=== PATIENT | male | born 1980 | race Caucasian/White ===

== ENCOUNTER 2020-07-08 13:37 | Inpatient (IN) ==
[2020-07-08] MEDS ORDERED: 0.9 % Sodium Chloride 1,000 ML IVC ONE ×2 (13:52→15:50)
[2020-07-08] MEDS ORDERED: Isovue-370 500 ML BOTTLE IVP ONE (13:52)
[2020-07-08] MEDS ORDERED: Prochlorperazine 10 MG/2 ML VIAL IVP ONE (13:52)
[2020-07-08 14:39] LABS: Basophils # 0.1 K/mcL (0.0-0.2); Basophils % 0.4 %; Eosinophils # 0.2 K/mcL (0.0-0.6); Hematocrit 44.3 % (37.5-50.1); Hemoglobin 14.6 g/dL (12.9-16.9); Immature Granulocytes % 0.4 % (0-4); Lymphocytes # 0.9 K/mcL (0.6-4.6); Lymphocytes % 6.2 %; Mean Corpuscular Hemoglobin 27.3 pg (28.0-33.3); Mean Platelet Volume 9.9 fL (9.4-12.4); Monocytes # 0.7 K/mcL (0.0-1.3); Monocytes % 4.7 %; Neutrophils # 12.7 K/mcL (1.6-8.9); Platelet Count 285 K/mcL (140-400); Red Blood Count 5.34 M/mcL (4.19-5.50); Red Cell Distribution Width 14.7 % (11.5-14.5); Segmented Neutrophils % 87.3 %; White Blood Count 14.6 K/mcL (4.3-11.1)
[2020-07-08 15:11] LABS: Alanine Aminotransferase 13 Units/L (7-52); Albumin 3.6 g/dL (3.5-5.7); Albumin/Globulin Ratio 0.8 (1.1-2.2); Alkaline Phosphatase 57 Units/L (34-104); Aspartate Amino Transferase 15 Units/L (13-39); BUN/Creatinine Ratio 14 (6-26); Bilirubin,Direct 0.2 mg/dL (0.0-0.2); Bilirubin,Indirect 0.6 mg/dL (0.0-1.0); Bilirubin,Total 0.8 mg/dL (0.3-1.0); Blood Urea Nitrogen 13 mg/dL (6-20); Carbon Dioxide 21 mEq/L (23-29); Chloride 102 mEq/L (98-107); Globulin 4.5 g/dL (2.4-3.5); Glucose 104 mg/dL (70-105); Lipase 225 Units/L (11-82); Osmolality,Calculated 280 (280-300); Potassium 3.6 mEq/L (3.5-5.1); Sodium 135 mEq/L (136-145); Total Protein 8.1 g/dL (6.4-8.9); Triglycerides 88 mg/dL (< 150); eGFR For African Americans > 60 (> 60); eGFR For Non-African Americans > 60 (> 60)
[2020-07-08 16:13] LABS: Ethanol < 10 mg/dL (Less than 10)
[2020-07-08] MEDS ORDERED: Metoclopramide 10 MG/2 ML VIAL IVP ONE (16:42)
[2020-07-08] MEDS ORDERED: Naloxone 0.4 MG/ML INJ IVP PRN (16:49)
[2020-07-08] MEDS: 0.9 % Sodium Chloride 1,000 ML IVC SCH (18:16)
[2020-07-08 18:45] LABS: Bilirubin,Urine Negative (Negative); Blood,Urine Small (Negative); Clarity,Urine Clear (Clear); Color,Urine Light-Yellow (Yellow); Glucose,Urine (UA) Normal (Normal); Ketones,Urine Trace mg/dL (Negative); Leukocyte Esterase,Urine Negative (Negative); Nitrite,Urine Negative (Negative); Protein,Urine Negative (Neg-Trace); Specific Gravity,Urine > 1.030 (1.010-1.025); Squamous Epithelial Cell,Urine Few per hpf (None-Few); WBC,Urine 0-3 per hpf (0-3)
[2020-07-08] MEDS: *HR* Heparin 5,000 UNIT/ML VIAL SQ SCH (21:23)
[2020-07-08] MEDS: levoFLOXacin 750 MG/150 ML 750 MG/150 ML BAG IVPB SCH (23:34)
[2020-07-09] MEDS: 0.9 % Sodium Chloride 1,000 ML IVC SCH ×3 (02:24→22:21)
[2020-07-09] MEDS: *HR* Heparin 5,000 UNIT/ML VIAL SQ SCH ×3 (06:13→21:05)
[2020-07-09 06:50] LABS: Hematocrit 40.4 % (37.5-50.1); Hemoglobin 13.1 g/dL (12.9-16.9); Mean Corpuscular HGB Conc 32.4 g/dL (31.6-35.5); Mean Corpuscular Hemoglobin 27.5 pg (28.0-33.3); Mean Corpuscular Volume 84.7 fL (83.0-100.0); Mean Platelet Volume 9.6 fL (9.4-12.4); Platelet Count 217 K/mcL (140-400); Red Blood Count 4.77 M/mcL (4.19-5.50); Red Cell Distribution Width 14.6 % (11.5-14.5); White Blood Count 11.7 K/mcL (4.3-11.1)
[2020-07-09] MEDS: levoFLOXacin 750 MG/150 ML 750 MG/150 ML BAG IVPB SCH (07:38)
[2020-07-09 08:55] LABS: Estimated Average Glucose 97 mg/dl
[2020-07-09 09:48] LABS: BUN/Creatinine Ratio 11 (6-26); Blood Urea Nitrogen 11 mg/dL (6-20); Calcium 8.9 mg/dL (8.6-10.3); Carbon Dioxide 20 mEq/L (23-29); Chloride 104 mEq/L (98-107); Chol/HDL Ratio 5.3 (0-4.9); Cholesterol 122 mg/dL (< 200); Glucose 95 mg/dL (70-105); HDL Cholesterol 23 mg/dL (40-59); LDL Cholesterol,Calculated 76 mg/dL (< 100); Osmolality,Calculated 279 (280-300); Potassium 3.8 mEq/L (3.5-5.1); Sodium 135 mEq/L (136-145); Triglycerides 113 mg/dL (< 150); eGFR For African Americans > 60 (> 60); eGFR For Non-African Americans > 60 (> 60)
[2020-07-09] MEDS: *HR* HYDROmorphone PF 0.5 MG/0.5 ML SYRINGE IVP PRN (21:05)
[2020-07-09] MEDS: Acetaminophen 325 MG TABLET PO PRN (23:54)
[2020-07-10 05:04] LABS: Hemoglobin 12.6 g/dL (12.9-16.9); Mean Corpuscular HGB Conc 31.5 g/dL (31.6-35.5); Mean Corpuscular Hemoglobin 27.2 pg (28.0-33.3); Mean Corpuscular Volume 86.4 fL (83.0-100.0); Platelet Count 174 K/mcL (140-400); Red Blood Count 4.63 M/mcL (4.19-5.50); Red Cell Distribution Width 14.9 % (11.5-14.5); White Blood Count 8.7 K/mcL (4.3-11.1)
[2020-07-10] MEDS: *HR* Heparin 5,000 UNIT/ML VIAL SQ SCH ×3 (05:14→21:16)
[2020-07-10 05:23] LABS: BUN/Creatinine Ratio 10 (6-26); Blood Urea Nitrogen 10 mg/dL (6-20); Calcium 8.6 mg/dL (8.6-10.3); Carbon Dioxide 20 mEq/L (23-29); Chloride 103 mEq/L (98-107); Glucose 87 mg/dL (70-105); Osmolality,Calculated 274 (280-300); Potassium 3.6 mEq/L (3.5-5.1); Sodium 133 mEq/L (136-145); eGFR For African Americans > 60 (> 60); eGFR For Non-African Americans > 60 (> 60)
[2020-07-10] MEDS: 0.9 % Sodium Chloride 1,000 ML IVC SCH ×2 (06:26→19:25)
[2020-07-10] MEDS: *HR* HYDROmorphone PF 0.5 MG/0.5 ML SYRINGE IVP PRN ×2 (07:33→19:48)
[2020-07-10] MEDS: Ringers Solution, Lactated 1,000 ML IVC SCH ×2 (14:22→21:16)
[2020-07-10] MEDS: Acetaminophen 325 MG TABLET PO PRN (19:48)
[2020-07-11] MEDS ORDERED: *HR* HYDROcodone/Acet 5/325 mg TABLET PO ONE (00:33)
[2020-07-11] MEDS: *HR* HYDROmorphone PF 0.5 MG/0.5 ML SYRINGE IVP PRN ×2 (03:03→09:06)
[2020-07-11] MEDS: *HR* Heparin 5,000 UNIT/ML VIAL SQ SCH ×3 (05:23→21:16)
[2020-07-11 05:57] LABS: Basophils # 0.1 K/mcL (0.0-0.2); Basophils % 0.4 %; Eosinophils # 0.1 K/mcL (0.0-0.6); Eosinophils % 1.2 %; Hematocrit 38.5 % (37.5-50.1); Hemoglobin 12.4 g/dL (12.9-16.9); Immature Granulocytes % 0.6 % (0-4); Lymphocytes # 0.9 K/mcL (0.6-4.6); Mean Corpuscular HGB Conc 32.2 g/dL (31.6-35.5); Mean Corpuscular Hemoglobin 27.1 pg (28.0-33.3); Mean Corpuscular Volume 84.2 fL (83.0-100.0); Monocytes # 0.9 K/mcL (0.0-1.3); Monocytes % 7.7 %; Neutrophils # 9.2 K/mcL (1.6-8.9); Platelet Count 182 K/mcL (140-400); Red Blood Count 4.57 M/mcL (4.19-5.50); Red Cell Distribution Width 14.8 % (11.5-14.5); Segmented Neutrophils % 82.1 %; White Blood Count 11.3 K/mcL (4.3-11.1)
[2020-07-11 06:13] LABS: BUN/Creatinine Ratio 11 (6-26); Blood Urea Nitrogen 10 mg/dL (6-20); Calcium 8.8 mg/dL (8.6-10.3); Carbon Dioxide 22 mEq/L (23-29); Chloride 103 mEq/L (98-107); Glucose 97 mg/dL (70-105); Osmolality,Calculated 277 (280-300); Potassium 3.4 mEq/L (3.5-5.1); Sodium 134 mEq/L (136-145); eGFR For African Americans > 60 (> 60); eGFR For Non-African Americans > 60 (> 60)
[2020-07-11 08:48] LABS: Lipase 14 Units/L (11-82)
[2020-07-11] MEDS: *HR* HYDROcodone/Acet 5/325 mg TABLET PO PRN ×2 (12:00→18:04)
[2020-07-11] MEDS: Acetaminophen 325 MG TABLET PO PRN (16:04)
[2020-07-11] MEDS: Ringers Solution, Lactated 1,000 ML IVC SCH (19:41)
[2020-07-12] MEDS: *HR* HYDROcodone/Acet 5/325 mg TABLET PO PRN ×4 (00:42→21:41)
[2020-07-12 03:15] LABS: APTT (LE Anticoag) >150 sec (32-48); Diluted Russell Viper Venom >150 sec (33-44); LE Coag APTT Mixing >150 sec (32-48); LE Dil. Russell Viper Mix 1:1 >150 sec (33-44); PT (LE-Anticoag) 17.8 sec (12.0-15.5); Thrombin Time 18.6 sec (14.7-19.5)
[2020-07-12] MEDS: *HR* Heparin 5,000 UNIT/ML VIAL SQ SCH ×3 (05:04→21:40)
[2020-07-12] MEDS: Simethicone 80 MG TAB.CHEW PO PRN ×2 (06:10→19:58)
[2020-07-12] MEDS ORDERED: Ondansetron 4 MG/2 ML VIAL IVP PRN (09:41)
[2020-07-12] MEDS: Ringers Solution, Lactated 1,000 ML IVC SCH ×3 (10:15→23:48)
[2020-07-12 10:46] LABS: Basophils % 0.3 %; Eosinophils # 0.1 K/mcL (0.0-0.6); Eosinophils % 0.7 %; Hematocrit 40.3 % (37.5-50.1); Hemoglobin 13.6 g/dL (12.9-16.9); Immature Granulocytes % 0.4 % (0-4); Lymphocytes # 0.7 K/mcL (0.6-4.6); Mean Corpuscular HGB Conc 33.7 g/dL (31.6-35.5); Mean Corpuscular Hemoglobin 27.1 pg (28.0-33.3); Mean Corpuscular Volume 80.3 fL (83.0-100.0); Mean Platelet Volume 9.7 fL (9.4-12.4); Monocytes # 0.9 K/mcL (0.0-1.3); Monocytes % 6.5 %; Neutrophils # 11.7 K/mcL (1.6-8.9); Platelet Count 157 K/mcL (140-400); Red Blood Count 5.02 M/mcL (4.19-5.50); Red Cell Distribution Width 14.7 % (11.5-14.5); Segmented Neutrophils % 87.1 %; White Blood Count 13.5 K/mcL (4.3-11.1)
[2020-07-12 11:04] LABS: Alanine Aminotransferase 17 Units/L (7-52); Albumin 3.4 g/dL (3.5-5.7); Albumin/Globulin Ratio 0.7 (1.1-2.2); Alkaline Phosphatase 62 Units/L (34-104); Aspartate Amino Transferase 16 Units/L (13-39); BUN/Creatinine Ratio 11 (6-26); Bilirubin,Direct 0.4 mg/dL (0.0-0.2); Bilirubin,Indirect 0.6 mg/dL (0.0-1.0); Blood Urea Nitrogen 11 mg/dL (6-20); Calcium 9.1 mg/dL (8.6-10.3); Carbon Dioxide 24 mEq/L (23-29); Chloride 99 mEq/L (98-107); Globulin 4.7 g/dL (2.4-3.5); Glucose 110 mg/dL (70-105); Osmolality,Calculated 276 (280-300); Potassium 3.4 mEq/L (3.5-5.1); Sodium 133 mEq/L (136-145); Total Protein 8.1 g/dL (6.4-8.9); eGFR For African Americans > 60 (> 60); eGFR For Non-African Americans > 60 (> 60)
[2020-07-12] MEDS ORDERED: Isovue-370 500 ML BOTTLE IVP ONE ×2 (13:53→15:12)
[2020-07-12 14:55] LABS: Amphetamine Screen,Urine Negative ng/mL (Cutoff=1000); Barbiturate Screen,Urine Negative ng/mL (Cutoff=200); Benzodiazepines Screen,Urine Negative ng/mL (Cutoff=200); Cannabinoid Screen,Urine Negative ng/mL (Cutoff = 50); Cocaine Screen,Urine Negative ng/mL (Cutoff= 300); Opiate Screen,Urine Positive ng/mL (Cutoff=300); Phencyclidine Screen,Urine Negative ng/mL (Cutoff=25)
[2020-07-12] MEDS ORDERED: Perflutren Lipid Microsphere 1.3 ML in 0.9 % Sodium Chloride 8.7 ML IVP PRN (15:13)
[2020-07-12] MEDS ORDERED: Melatonin 3 MG TABLET PO PRN (23:59)
[2020-07-13] MEDS: Ringers Solution, Lactated 1,000 ML IVC SCH (05:04)
[2020-07-13] MEDS: *HR* Heparin 5,000 UNIT/ML VIAL SQ SCH ×2 (05:05→13:59)
[2020-07-13] MEDS: Simethicone 80 MG TAB.CHEW PO PRN (08:42)
[2020-07-13] MEDS: *HR* HYDROcodone/Acet 5/325 mg TABLET PO PRN (10:59)
[2020-07-13 12:12] VITALS: BP 144/76
== END 2020-07-13 14:24 | disposition home or self-care (01) | DRG 439 ==
LOC: EMEROOARM 13:37 → 3ANU 13:37 → SUATTDRO 16:08 → 3ANU 17:03
PROVIDERS: ADMIT Internal Medicine; ATTEND Internal Medicine

== ENCOUNTER 2020-07-23 11:04 | Inpatient (IN) ==
[2020-07-23 12:15] LABS: Basophils # 0.1 K/mcL (0.0-0.2); Basophils % 0.4 %; Eosinophils # 0.2 K/mcL (0.0-0.6); Hematocrit 37.9 % (37.5-50.1); Hemoglobin 12.4 g/dL (12.9-16.9); Immature Granulocytes % 1.2 % (0-4); Lymphocytes # 0.9 K/mcL (0.6-4.6); Lymphocytes % 5.7 %; Mean Corpuscular HGB Conc 32.7 g/dL (31.6-35.5); Mean Corpuscular Hemoglobin 26.8 pg (28.0-33.3); Monocytes # 0.7 K/mcL (0.0-1.3); Monocytes % 4.6 %; Neutrophils # 13.9 K/mcL (1.6-8.9); Platelet Count 300 K/mcL (140-400); Red Blood Count 4.62 M/mcL (4.19-5.50); Red Cell Distribution Width 14.8 % (11.5-14.5); Segmented Neutrophils % 87.1 %
[2020-07-23] MEDS ORDERED: Ondansetron 4 MG/2 ML VIAL IVP ONE (12:23)
[2020-07-23] MEDS ORDERED: Ringers Solution, Lactated 1,000 ML IVC ONE (12:23)
[2020-07-23 12:29] LABS: Bilirubin,Urine Negative (Negative); Blood,Urine Trace (Negative); Clarity,Urine Clear (Clear); Color,Urine Light-Yellow (Yellow); Glucose,Urine (UA) Normal (Normal); Ketones,Urine Negative (Negative); Leukocyte Esterase,Urine Negative (Negative); Mucus,Urine Few per lpf (None-Few); Nitrite,Urine Negative (Negative); Protein,Urine Trace mg/dL (Neg-Trace); Specific Gravity,Urine 1.013 (1.010-1.025); Urobilinogen,Urine Normal (Normal); WBC,Urine 0-3 per hpf (0-3)
[2020-07-23 12:41] LABS: Alanine Aminotransferase 24 Units/L (7-52); Albumin/Globulin Ratio 0.7 (1.1-2.2); Alkaline Phosphatase 62 Units/L (34-104); Amylase 51 Units/L (29-103); Aspartate Amino Transferase 16 Units/L (13-39); BUN/Creatinine Ratio 10 (6-26); Bilirubin,Direct 0.2 mg/dL (0.0-0.2); Bilirubin,Indirect 0.4 mg/dL (0.0-1.0); Bilirubin,Total 0.6 mg/dL (0.3-1.0); Blood Urea Nitrogen 10 mg/dL (6-20); Calcium 6.5 mg/dL (8.6-10.3); Carbon Dioxide 21 mEq/L (23-29); Chloride 82 mEq/L (98-107); Globulin 4.4 g/dL (2.4-3.5); Glucose 102 mg/dL (70-105); Lipase 46 Units/L (11-82); Osmolality,Calculated 317 (280-300); Potassium 3.6 mEq/L (3.5-5.1); Sodium 154 mEq/L (136-145); Total Protein 7.4 g/dL (6.4-8.9); eGFR For African Americans > 60 (> 60); eGFR For Non-African Americans > 60 (> 60)
[2020-07-23 12:46] LABS: Troponin I 0.07 ng/mL (< 0.04)
[2020-07-23] MEDS ORDERED: *HR* HYDROmorphone (PF) 1 MG/ML SYRINGE IVP ONE (12:53)
[2020-07-23] MEDS ORDERED: Isovue-370 500 ML BOTTLE IVP ONE (12:53)
[2020-07-23] MEDS ORDERED: Aspirin 81 MG TAB.CHEW PO ONE (13:00)
[2020-07-23] MEDS ORDERED: Aspirin 81 MG TAB.CHEW ONE (13:03)
[2020-07-23] MEDS ORDERED: Naloxone 0.4 MG/ML INJ IVP PRN (15:04)
[2020-07-23] MEDS ORDERED: Calcium Gluconate 1gm/50mL 1 GM/50 ML BAG IVPB ONE (16:53)
[2020-07-23] MEDS: levoFLOXacin 500 MG/100 ML 500 MG/100 ML BAG IVPB SCH (18:40)
[2020-07-23] MEDS: *HR* Heparin 5,000 UNIT/ML VIAL SQ SCH (19:31)
[2020-07-23] MEDS: Ringers Solution, Lactated 1,000 ML IVC SCH ×2 (19:56→22:52)
[2020-07-24] MEDS: Ringers Solution, Lactated 1,000 ML IVC SCH ×4 (03:34→17:42)
[2020-07-24 05:32] LABS: Basophils # 0.1 K/mcL (0.0-0.2); Basophils % 0.3 %; Eosinophils # 0.2 K/mcL (0.0-0.6); Eosinophils % 1.2 %; Hematocrit 38.8 % (37.5-50.1); Hemoglobin 12.5 g/dL (12.9-16.9); Immature Granulocytes % 0.9 % (0-4); Lymphocytes # 0.9 K/mcL (0.6-4.6); Lymphocytes % 5.1 %; Mean Corpuscular HGB Conc 32.2 g/dL (31.6-35.5); Mean Corpuscular Hemoglobin 27.3 pg (28.0-33.3); Mean Corpuscular Volume 84.7 fL (83.0-100.0); Mean Platelet Volume 9.1 fL (9.4-12.4); Monocytes # 0.9 K/mcL (0.0-1.3); Monocytes % 5.3 %; Neutrophils # 15.1 K/mcL (1.6-8.9); Platelet Count 255 K/mcL (140-400); Red Blood Count 4.58 M/mcL (4.19-5.50); Red Cell Distribution Width 15.1 % (11.5-14.5); Segmented Neutrophils % 87.2 %; White Blood Count 17.3 K/mcL (4.3-11.1)
[2020-07-24] MEDS: *HR* Heparin 5,000 UNIT/ML VIAL SQ SCH ×4 (05:43→21:36)
[2020-07-24 06:00] LABS: BUN/Creatinine Ratio 10 (6-26); Blood Urea Nitrogen 12 mg/dL (6-20); Calcium 9.1 mg/dL (8.6-10.3); Carbon Dioxide 25 mEq/L (23-29); Chloride 98 mEq/L (98-107); Glucose 93 mg/dL (70-105); Osmolality,Calculated 271 (280-300); Potassium 4.1 mEq/L (3.5-5.1); Sodium 131 mEq/L (136-145); eGFR For African Americans > 60 (> 60); eGFR For Non-African Americans > 60 (> 60)
[2020-07-24 07:43] LABS: BUN/Creatinine Ratio 10 (6-26); Blood Urea Nitrogen 12 mg/dL (6-20); Calcium 8.8 mg/dL (8.6-10.3); Carbon Dioxide 26 mEq/L (23-29); Chloride 99 mEq/L (98-107); Glucose 106 mg/dL (70-105); Osmolality,Calculated 274 (280-300); Sodium 132 mEq/L (136-145); eGFR For African Americans > 60 (> 60); eGFR For Non-African Americans > 60 (> 60)
[2020-07-24 07:58] LABS: Troponin I < 0.03 ng/mL (< 0.04)
[2020-07-24] MEDS: Acetaminophen 325 MG TABLET PO PRN ×2 (12:59→23:36)
[2020-07-24] MEDS: MetroNIDAZOLE 500 MG/100 ML 500 MG/100 ML BAG IVPB SCH ×2 (15:15→23:36)
[2020-07-24 16:21] LABS: Alanine Aminotransferase 16 Units/L (7-52); Albumin/Globulin Ratio 0.6 (1.1-2.2); Alkaline Phosphatase 66 Units/L (34-104); Aspartate Amino Transferase 15 Units/L (13-39); BUN/Creatinine Ratio 12 (6-26); Bilirubin,Total 1.4 mg/dL (0.3-1.0); Blood Urea Nitrogen 14 mg/dL (6-20); Calcium 8.8 mg/dL (8.6-10.3); Carbon Dioxide 27 mEq/L (23-29); Chloride 97 mEq/L (98-107); Globulin 4.7 g/dL (2.4-3.5); Glucose 91 mg/dL (70-105); Osmolality,Calculated 272 (280-300); Potassium 3.9 mEq/L (3.5-5.1); Sodium 131 mEq/L (136-145); Total Protein 7.7 g/dL (6.4-8.9); eGFR For African Americans > 60 (> 60); eGFR For Non-African Americans > 60 (> 60)
[2020-07-24] MEDS: levoFLOXacin 500 MG/100 ML 500 MG/100 ML BAG IVPB SCH (16:30)
[2020-07-24] MEDS: 0.9 % Sodium Chloride 1,000 ML IVC SCH ×2 (18:29→21:25)
[2020-07-25] MEDS: 0.9 % Sodium Chloride 1,000 ML IVC SCH ×4 (02:03→20:22)
[2020-07-25] MEDS: *HR* Heparin 5,000 UNIT/ML VIAL SQ SCH ×3 (04:59→20:17)
[2020-07-25 06:03] LABS: Basophils % 0.2 %; Eosinophils # 0.1 K/mcL (0.0-0.6); Eosinophils % 0.8 %; Hematocrit 37.1 % (37.5-50.1); Hemoglobin 11.7 g/dL (12.9-16.9); Immature Granulocytes % 0.9 % (0-4); Mean Corpuscular HGB Conc 31.5 g/dL (31.6-35.5); Mean Corpuscular Hemoglobin 26.5 pg (28.0-33.3); Mean Corpuscular Volume 83.9 fL (83.0-100.0); Mean Platelet Volume 9.3 fL (9.4-12.4); Monocytes % 5.9 %; Neutrophils # 13.9 K/mcL (1.6-8.9); Platelet Count 214 K/mcL (140-400); Red Blood Count 4.42 M/mcL (4.19-5.50); Red Cell Distribution Width 15.3 % (11.5-14.5); Segmented Neutrophils % 86.2 %; White Blood Count 16.2 K/mcL (4.3-11.1)
[2020-07-25 06:13] LABS: Alanine Aminotransferase 17 Units/L (7-52); Albumin 2.9 g/dL (3.5-5.7); Albumin/Globulin Ratio 0.6 (1.1-2.2); Alkaline Phosphatase 66 Units/L (34-104); Aspartate Amino Transferase 16 Units/L (13-39); BUN/Creatinine Ratio 13 (6-26); Bilirubin,Direct 1.3 mg/dL (0.0-0.2); Bilirubin,Indirect 0.8 mg/dL (0.0-1.0); Bilirubin,Total 2.1 mg/dL (0.3-1.0); Blood Urea Nitrogen 16 mg/dL (6-20); Calcium 8.4 mg/dL (8.6-10.3); Carbon Dioxide 25 mEq/L (23-29); Chloride 98 mEq/L (98-107); Globulin 4.6 g/dL (2.4-3.5); Glucose 87 mg/dL (70-105); Osmolality,Calculated 275 (280-300); Potassium 3.8 mEq/L (3.5-5.1); Sodium 132 mEq/L (136-145); Total Protein 7.5 g/dL (6.4-8.9); eGFR For African Americans > 60 (> 60); eGFR For Non-African Americans > 60 (> 60)
[2020-07-25] MEDS: Ondansetron 4 MG/2 ML VIAL IVP PRN (09:26)
[2020-07-25] MEDS: MetroNIDAZOLE 500 MG/100 ML 500 MG/100 ML BAG IVPB SCH ×2 (09:27→14:48)
[2020-07-25 11:15] LABS: Hepatitis C Virus Antibody Nonreactive (Nonreactive)
[2020-07-25 11:16] LABS: Hepatitis A Antibody IgM Nonreactive (Nonreactive); Hepatitis B Core IgM Nonreactive (Nonreactive)
[2020-07-25 15:36] LABS: Chol/HDL Ratio 4.5 (0-4.9)
[2020-07-25 16:00] LABS: Hepatitis B Surface Antigen Nonreactive (Nonreactive)
[2020-07-25] MEDS: levoFLOXacin 500 MG/100 ML 500 MG/100 ML BAG IVPB SCH (17:23)
[2020-07-25] MEDS: Acetaminophen 325 MG TABLET PO PRN (17:32)
[2020-07-25] MEDS ORDERED: 0.9 % Sodium Chloride 1,000 ML IVC ONE (17:40)
[2020-07-25 18:15] LABS: Basophils # 0.1 K/mcL (0.0-0.2); Basophils % 0.3 %; Eosinophils # 0.1 K/mcL (0.0-0.6); Eosinophils % 0.6 %; Hematocrit 33.7 % (37.5-50.1); Immature Granulocytes % 0.8 % (0-4); Lymphocytes # 0.7 K/mcL (0.6-4.6); Lymphocytes % 4.3 %; Mean Corpuscular HGB Conc 32.6 g/dL (31.6-35.5); Mean Corpuscular Hemoglobin 26.9 pg (28.0-33.3); Mean Corpuscular Volume 82.4 fL (83.0-100.0); Mean Platelet Volume 9.1 fL (9.4-12.4); Monocytes # 0.9 K/mcL (0.0-1.3); Monocytes % 5.1 %; Neutrophils # 15.2 K/mcL (1.6-8.9); Platelet Count 194 K/mcL (140-400); Red Blood Count 4.09 M/mcL (4.19-5.50); Segmented Neutrophils % 88.9 %; White Blood Count 17.1 K/mcL (4.3-11.1)
[2020-07-25 19:06] LABS: Alanine Aminotransferase 17 Units/L (7-52); Albumin 2.8 g/dL (3.5-5.7); Albumin/Globulin Ratio 0.7 (1.1-2.2); Alkaline Phosphatase 73 Units/L (34-104); Aspartate Amino Transferase 17 Units/L (13-39); BUN/Creatinine Ratio 12 (6-26); Bilirubin,Total 1.6 mg/dL (0.3-1.0); Blood Urea Nitrogen 14 mg/dL (6-20); Calcium 7.8 mg/dL (8.6-10.3); Carbon Dioxide 23 mEq/L (23-29); Chloride 99 mEq/L (98-107); Globulin 4.3 g/dL (2.4-3.5); Glucose 121 mg/dL (70-105); Osmolality,Calculated 272 (280-300); Potassium 3.7 mEq/L (3.5-5.1); Sodium 130 mEq/L (136-145); Total Protein 7.1 g/dL (6.4-8.9); eGFR For African Americans > 60 (> 60); eGFR For Non-African Americans > 60 (> 60)
[2020-07-25 20:46] LABS: Bacteria,Urine Few per hpf (None-Few); Mucus,Urine Few per lpf (None-Few); WBC,Urine 0-3 per hpf (0-3)
[2020-07-25 20:49] LABS: Amphetamine Screen,Urine Negative ng/mL (Cutoff=1000); Barbiturate Screen,Urine Negative ng/mL (Cutoff=200); Benzodiazepines Screen,Urine Negative ng/mL (Cutoff=200); Cannabinoid Screen,Urine Negative ng/mL (Cutoff = 50); Cocaine Screen,Urine Negative ng/mL (Cutoff= 300); Opiate Screen,Urine Positive ng/mL (Cutoff=300); Phencyclidine Screen,Urine Negative ng/mL (Cutoff=25)
[2020-07-25 20:51] LABS: Bilirubin,Urine Negative (Negative); Blood,Urine Moderate (Negative); Clarity,Urine Clear (Clear); Color,Urine Yellow (Yellow); Glucose,Urine (UA) Normal (Normal); Ketones,Urine Negative (Negative); Leukocyte Esterase,Urine Negative (Negative); Nitrite,Urine Negative (Negative); PH,Urine 6.5 pH Units (5.0-8.0); Protein,Urine Trace mg/dL (Neg-Trace); Specific Gravity,Urine 1.015 (1.010-1.025); Urobilinogen,Urine >=8.0 mg/dL (Normal)
[2020-07-26] MEDS: Acetaminophen 325 MG TABLET PO PRN (00:39)
[2020-07-26] MEDS ORDERED: 0.9 % Sodium Chloride 1,000 ML IVC ONE (04:27)
[2020-07-26 06:01] LABS: Basophils % 0.2 %; Eosinophils # 0.1 K/mcL (0.0-0.6); Eosinophils % 0.6 %; Hematocrit 35.6 % (37.5-50.1); Hemoglobin 11.4 g/dL (12.9-16.9); Immature Granulocytes % 1.1 % (0-4); Lymphocytes # 0.9 K/mcL (0.6-4.6); Lymphocytes % 5.3 %; Mean Corpuscular Hemoglobin 26.5 pg (28.0-33.3); Mean Corpuscular Volume 82.8 fL (83.0-100.0); Neutrophils # 14.6 K/mcL (1.6-8.9); Platelet Count 199 K/mcL (140-400); Red Cell Distribution Width 15.3 % (11.5-14.5); Segmented Neutrophils % 86.8 %; White Blood Count 16.9 K/mcL (4.3-11.1)
[2020-07-26] MEDS: *HR* Heparin 5,000 UNIT/ML VIAL SQ SCH ×3 (06:20→20:27)
[2020-07-26] MEDS: 0.9 % Sodium Chloride 1,000 ML IVC SCH ×3 (06:21→17:56)
[2020-07-26 06:23] LABS: BUN/Creatinine Ratio 11 (6-26); Blood Urea Nitrogen 14 mg/dL (6-20); Calcium 8.4 mg/dL (8.6-10.3); Carbon Dioxide 26 mEq/L (23-29); Chloride 98 mEq/L (98-107); Glucose 110 mg/dL (70-105); Osmolality,Calculated 275 (280-300); Potassium 3.7 mEq/L (3.5-5.1); Sodium 132 mEq/L (136-145); eGFR For African Americans > 60 (> 60); eGFR For Non-African Americans > 60 (> 60)
[2020-07-26 11:59] LABS: Thyroid Stimulating Hormone 4.161 mcIU/mL (0.340-5.600)
[2020-07-26 12:59] LABS: Complement C3 79 mg/dL (87-200)
[2020-07-26] MEDS ORDERED: Vancomycin 1,500 MG/265 ML IV.SOLN IVPB ONE (14:48)
[2020-07-26 16:07] LABS: Procalcitonin 0.23 ng/mL (0.00-0.15)
[2020-07-26 16:30] LABS: Rheumatoid Factor < 10 IU/mL (Less than 14)
[2020-07-26] MEDS ORDERED: levoFLOXacin 500 MG TABLET PO SCH (17:00)
[2020-07-26] MEDS: Piperacillin/Tazobactam 3.375 GM in 0.9 % Sodium Chloride Mini Bag 100 ML IVPB SCH (17:55)
[2020-07-26] MEDS: Vancomycin 1,500 MG/265 ML IV.SOLN IVPB SCH (20:26)
[2020-07-27] MEDS: 0.9 % Sodium Chloride 1,000 ML IVC SCH ×3 (00:27→15:16)
[2020-07-27] MEDS: Piperacillin/Tazobactam 3.375 GM in 0.9 % Sodium Chloride Mini Bag 100 ML IVPB SCH ×3 (00:54→16:45)
[2020-07-27 02:09] LABS: Basophils % 0.2 %; Eosinophils # 0.1 K/mcL (0.0-0.6); Eosinophils % 0.4 %; Hemoglobin 10.9 g/dL (12.9-16.9); Immature Granulocytes % 0.7 % (0-4); Lymphocytes # 0.7 K/mcL (0.6-4.6); Lymphocytes % 4.4 %; Mean Corpuscular HGB Conc 32.1 g/dL (31.6-35.5); Mean Corpuscular Hemoglobin 26.8 pg (28.0-33.3); Mean Corpuscular Volume 83.7 fL (83.0-100.0); Mean Platelet Volume 9.4 fL (9.4-12.4); Monocytes % 6.3 %; Neutrophils # 14.4 K/mcL (1.6-8.9); Platelet Count 185 K/mcL (140-400); Red Blood Count 4.06 M/mcL (4.19-5.50); Red Cell Distribution Width 15.1 % (11.5-14.5); White Blood Count 16.4 K/mcL (4.3-11.1)
[2020-07-27 02:30] LABS: Alanine Aminotransferase 13 Units/L (7-52); Albumin 2.8 g/dL (3.5-5.7); Albumin/Globulin Ratio 0.6 (1.1-2.2); Alkaline Phosphatase 77 Units/L (34-104); Aspartate Amino Transferase 12 Units/L (13-39); BUN/Creatinine Ratio 10 (6-26); Bilirubin,Direct 0.6 mg/dL (0.0-0.2); Bilirubin,Indirect 0.7 mg/dL (0.0-1.0); Bilirubin,Total 1.3 mg/dL (0.3-1.0); Blood Urea Nitrogen 13 mg/dL (6-20); Carbon Dioxide 24 mEq/L (23-29); Chloride 98 mEq/L (98-107); Globulin 4.4 g/dL (2.4-3.5); Glucose 132 mg/dL (70-105); Osmolality,Calculated 270 (280-300); Potassium 3.4 mEq/L (3.5-5.1); Sodium 129 mEq/L (136-145); Total Protein 7.2 g/dL (6.4-8.9); eGFR For African Americans > 60 (> 60); eGFR For Non-African Americans > 60 (> 60)
[2020-07-27] MEDS: Vancomycin 1,500 MG/265 ML IV.SOLN IVPB SCH ×2 (05:25→16:47)
[2020-07-27] MEDS: *HR* Heparin 5,000 UNIT/ML VIAL SQ SCH ×3 (05:32→20:09)
[2020-07-27] MEDS: Ondansetron 4 MG/2 ML VIAL IVP PRN (07:00)
[2020-07-27] MEDS ORDERED: Potassium Chloride Elixir 20 MEQ/15 ML UDC PO ONE (07:21)
[2020-07-27 13:29] LABS: ANA IgG by ELISA DETECTED (None Detected)
[2020-07-27] MEDS: Acetaminophen 325 MG TABLET PO PRN ×2 (14:09→23:31)
[2020-07-28] MEDS: Piperacillin/Tazobactam 3.375 GM in 0.9 % Sodium Chloride Mini Bag 100 ML IVPB SCH ×3 (00:31→17:09)
[2020-07-28 05:13] LABS: Basophils # 0.1 K/mcL (0.0-0.2); Basophils % 0.2 %; Eosinophils # 0.1 K/mcL (0.0-0.6); Eosinophils % 0.2 %; Hematocrit 34.5 % (37.5-50.1); Hemoglobin 11.1 g/dL (12.9-16.9); Immature Granulocytes % 0.7 % (0-4); Lymphocytes # 0.7 K/mcL (0.6-4.6); Lymphocytes % 3.2 %; Mean Corpuscular HGB Conc 32.2 g/dL (31.6-35.5); Mean Corpuscular Hemoglobin 27.1 pg (28.0-33.3); Mean Corpuscular Volume 84.4 fL (83.0-100.0); Mean Platelet Volume 9.5 fL (9.4-12.4); Monocytes # 1.2 K/mcL (0.0-1.3); Monocytes % 5.9 %; Neutrophils # 18.6 K/mcL (1.6-8.9); Platelet Count 152 K/mcL (140-400); Red Blood Count 4.09 M/mcL (4.19-5.50); Red Cell Distribution Width 15.1 % (11.5-14.5); Segmented Neutrophils % 89.8 %; White Blood Count 20.8 K/mcL (4.3-11.1)
[2020-07-28 05:23] LABS: INR 3.3; Prothrombin Time 36.9 Seconds (9.4-12.1)
[2020-07-28 05:36] LABS: BUN/Creatinine Ratio 10 (6-26); Blood Urea Nitrogen 13 mg/dL (6-20); Calcium 8.2 mg/dL (8.6-10.3); Carbon Dioxide 23 mEq/L (23-29); Chloride 96 mEq/L (98-107); Glucose 126 mg/dL (70-105); Osmolality,Calculated 272 (280-300); Potassium 3.7 mEq/L (3.5-5.1); Sodium 130 mEq/L (136-145); eGFR For African Americans > 60 (> 60); eGFR For Non-African Americans 58 (> 60)
[2020-07-28] MEDS: *HR* Heparin 5,000 UNIT/ML VIAL SQ SCH (05:51)
[2020-07-28] MEDS: Vancomycin 1,750 MG/517.5 ML IV.SOLN IVPB SCH ×2 (06:06→17:09)
[2020-07-28 08:41] LABS: INR 3.2; Prothrombin Time 35.3 Seconds (9.4-12.1)
[2020-07-28 08:46] LABS: Activated Partial Thrombo Time 110.3 Seconds (26.0-36.0)
[2020-07-28 08:54] LABS: Albumin 2.7 g/dL (3.5-5.7); Albumin/Globulin Ratio 0.6 (1.1-2.2); Bilirubin,Direct 0.5 mg/dL (0.0-0.2); Bilirubin,Indirect 0.7 mg/dL (0.0-1.0); Bilirubin,Total 1.2 mg/dL (0.3-1.0); Globulin 4.6 g/dL (2.4-3.5); Total Protein 7.3 g/dL (6.4-8.9)
[2020-07-28 09:23] LABS: ANA HEp-2 IgG IFA <1:80 (<1:80)
[2020-07-28] MEDS: Doxycycline 100 MG CAPSULE PO SCH ×2 (09:38→19:22)
[2020-07-28] MEDS: 0.9 % Sodium Chloride 1,000 ML IVC SCH ×2 (09:39→13:07)
[2020-07-28] MEDS ORDERED: *HR* Phytonadione 10 MG/ML AMPUL SQ ONE (11:59)
[2020-07-28 12:11] LABS: Immunoglobulin G Subclass 1 1229 mg/dL (240-1118); Immunoglobulin G Subclass 2 621 mg/dL (124-549); Immunoglobulin G Subclass 3 72 mg/dL (21-134); Immunoglobulin G Subclass 4 79 mg/dL (1-123)
[2020-07-28] MEDS: Ondansetron 4 MG/2 ML VIAL IVP PRN (19:25)
[2020-07-28 20:04] LABS: Sodium, Urine 69.5 mEq/L
[2020-07-29] MEDS: Piperacillin/Tazobactam 3.375 GM in 0.9 % Sodium Chloride Mini Bag 100 ML IVPB SCH ×4 (00:11→23:30)
[2020-07-29 04:12] LABS: Basophils # 0.1 K/mcL (0.0-0.2); Basophils % 0.3 %; Eosinophils # 0.1 K/mcL (0.0-0.6); Eosinophils % 0.3 %; Hematocrit 31.9 % (37.5-50.1); Hemoglobin 10.3 g/dL (12.9-16.9); Immature Granulocytes % 0.9 % (0-4); Lymphocytes # 0.9 K/mcL (0.6-4.6); Lymphocytes % 4.3 %; Mean Corpuscular HGB Conc 32.3 g/dL (31.6-35.5); Mean Corpuscular Hemoglobin 26.6 pg (28.0-33.3); Mean Corpuscular Volume 82.4 fL (83.0-100.0); Mean Platelet Volume 9.6 fL (9.4-12.4); Monocytes # 1.3 K/mcL (0.0-1.3); Neutrophils # 19.4 K/mcL (1.6-8.9); Platelet Count 155 K/mcL (140-400); Red Blood Count 3.87 M/mcL (4.19-5.50); Red Cell Distribution Width 15.4 % (11.5-14.5); Segmented Neutrophils % 88.2 %
[2020-07-29 04:18] LABS: Albumin 2.6 g/dL (3.5-5.7); Albumin/Globulin Ratio 0.6 (1.1-2.2); Bilirubin,Direct 0.7 mg/dL (0.0-0.2); Bilirubin,Indirect 0.5 mg/dL (0.0-1.0); Bilirubin,Total 1.2 mg/dL (0.3-1.0); Calcium 7.9 mg/dL (8.6-10.3); Globulin 4.4 g/dL (2.4-3.5); Potassium 3.4 mEq/L (3.5-5.1)
[2020-07-29 04:25] LABS: INR 2.7; Prothrombin Time 30.5 Seconds (9.4-12.1)
[2020-07-29 04:28] LABS: D-Dimer 1715 ng/mLFEU (0-500)
[2020-07-29 04:29] LABS: Fibrinogen 736 mg/dL (169-393)
[2020-07-29 04:48] LABS: Activated Partial Thrombo Time 123.9 Seconds (26.0-36.0)
[2020-07-29] MEDS: Vancomycin 1,750 MG/517.5 ML IV.SOLN IVPB SCH (08:32)
[2020-07-29] MEDS: Doxycycline 100 MG CAPSULE PO SCH ×2 (08:34→21:20)
[2020-07-29] MEDS: 0.9 % Sodium Chloride 1,000 ML IVC SCH ×2 (08:35→12:46)
[2020-07-29] MEDS ORDERED: Perflutren Lipid Microsphere 1.3 ML in 0.9 % Sodium Chloride 8.7 ML IVP PRN (10:37)
[2020-07-29] MEDS ORDERED: 0.9 % Sodium Chloride 1,000 ML IVC ONE (12:15)
[2020-07-29] MEDS: Acetaminophen 325 MG TABLET PO PRN (18:50)
[2020-07-30 01:39] LABS: Basophils # 0.1 K/mcL (0.0-0.2); Basophils % 0.3 %; Eosinophils # 0.1 K/mcL (0.0-0.6); Eosinophils % 0.4 %; Hematocrit 35.9 % (37.5-50.1); Hemoglobin 11.3 g/dL (12.9-16.9); Lymphocytes # 0.7 K/mcL (0.6-4.6); Lymphocytes % 3.5 %; Mean Corpuscular HGB Conc 31.5 g/dL (31.6-35.5); Mean Corpuscular Hemoglobin 26.7 pg (28.0-33.3); Mean Corpuscular Volume 84.9 fL (83.0-100.0); Mean Platelet Volume 9.7 fL (9.4-12.4); Monocytes # 1.2 K/mcL (0.0-1.3); Monocytes % 6.2 %; Neutrophils # 17.4 K/mcL (1.6-8.9); Platelet Count 165 K/mcL (140-400); Red Blood Count 4.23 M/mcL (4.19-5.50); Red Cell Distribution Width 15.3 % (11.5-14.5); Segmented Neutrophils % 88.6 %; White Blood Count 19.6 K/mcL (4.3-11.1)
[2020-07-30 01:44] LABS: INR 2.8; Prothrombin Time 31.6 Seconds (9.4-12.1)
[2020-07-30 01:53] LABS: Alanine Aminotransferase 23 Units/L (7-52); Albumin 2.8 g/dL (3.5-5.7); Albumin/Globulin Ratio 0.6 (1.1-2.2); Alkaline Phosphatase 116 Units/L (34-104); Aspartate Amino Transferase 34 Units/L (13-39); BUN/Creatinine Ratio 10 (6-26); Bilirubin,Direct 1.1 mg/dL (0.0-0.2); Bilirubin,Indirect 0.6 mg/dL (0.0-1.0); Bilirubin,Total 1.7 mg/dL (0.3-1.0); Blood Urea Nitrogen 15 mg/dL (6-20); Calcium 8.3 mg/dL (8.6-10.3); Carbon Dioxide 25 mEq/L (23-29); Chloride 95 mEq/L (98-107); Globulin 4.7 g/dL (2.4-3.5); Glucose 113 mg/dL (70-105); Osmolality,Calculated 276 (280-300); Potassium 3.4 mEq/L (3.5-5.1); Sodium 132 mEq/L (136-145); Total Protein 7.5 g/dL (6.4-8.9); eGFR For African Americans > 60 (> 60); eGFR For Non-African Americans 50 (> 60)
[2020-07-30 02:03] LABS: Activated Partial Thrombo Time 127.9 Seconds (26.0-36.0)
[2020-07-30] MEDS: 0.9 % Sodium Chloride 1,000 ML IVC SCH ×4 (03:17→18:24)
[2020-07-30] MEDS: Piperacillin/Tazobactam 3.375 GM in 0.9 % Sodium Chloride Mini Bag 100 ML IVPB SCH ×3 (09:30→23:32)
[2020-07-30] MEDS: *HR* Phytonadione 5 MG TABLET PO SCH (09:30)
[2020-07-30] MEDS: Doxycycline 100 MG CAPSULE PO SCH ×2 (09:30→20:34)
[2020-07-30] MEDS: Acetaminophen 325 MG TABLET PO PRN (12:00)
[2020-07-30] MEDS ORDERED: *HR* Heparin 5,000 UNIT/ML VIAL SQ SCH (14:00)
[2020-07-30] MEDS ORDERED: predniSONE 20 MG TABLET PO ONE (17:00)
[2020-07-31 01:10] LABS: Basophils % 0.2 %; Eosinophils % 0.1 %; Hematocrit 31.5 % (37.5-50.1); Hemoglobin 9.9 g/dL (12.9-16.9); Immature Granulocytes % 1.2 % (0-4); Lymphocytes # 0.4 K/mcL (0.6-4.6); Lymphocytes % 1.8 %; Mean Corpuscular HGB Conc 31.4 g/dL (31.6-35.5); Mean Corpuscular Hemoglobin 26.4 pg (28.0-33.3); Mean Platelet Volume 9.7 fL (9.4-12.4); Monocytes # 0.7 K/mcL (0.0-1.3); Monocytes % 3.3 %; Neutrophils # 20.7 K/mcL (1.6-8.9); Platelet Count 133 K/mcL (140-400); Red Blood Count 3.75 M/mcL (4.19-5.50); Red Cell Distribution Width 15.3 % (11.5-14.5); Segmented Neutrophils % 93.4 %; White Blood Count 22.2 K/mcL (4.3-11.1)
[2020-07-31 01:16] LABS: INR 2.9; Prothrombin Time 32.7 Seconds (9.4-12.1)
[2020-07-31 01:19] LABS: Activated Partial Thrombo Time 104.1 Seconds (26.0-36.0)
[2020-07-31 01:32] LABS: Alanine Aminotransferase 27 Units/L (7-52); Albumin 2.5 g/dL (3.5-5.7); Albumin/Globulin Ratio 0.6 (1.1-2.2); Alkaline Phosphatase 117 Units/L (34-104); Aspartate Amino Transferase 36 Units/L (13-39); BUN/Creatinine Ratio 11 (6-26); Bilirubin,Direct 1.5 mg/dL (0.0-0.2); Bilirubin,Indirect 0.6 mg/dL (0.0-1.0); Bilirubin,Total 2.1 mg/dL (0.3-1.0); Blood Urea Nitrogen 16 mg/dL (6-20); Calcium 7.9 mg/dL (8.6-10.3); Carbon Dioxide 24 mEq/L (23-29); Chloride 99 mEq/L (98-107); Globulin 4.3 g/dL (2.4-3.5); Glucose 149 mg/dL (70-105); Osmolality,Calculated 280 (280-300); Potassium 3.7 mEq/L (3.5-5.1); Sodium 133 mEq/L (136-145); Total Protein 6.8 g/dL (6.4-8.9); eGFR For African Americans > 60 (> 60); eGFR For Non-African Americans 55 (> 60)
[2020-07-31] MEDS: 0.9 % Sodium Chloride 1,000 ML IVC SCH ×4 (02:07→21:49)
[2020-07-31] MEDS: *HR* Phytonadione 5 MG TABLET PO SCH (08:44)
[2020-07-31] MEDS: Piperacillin/Tazobactam 3.375 GM in 0.9 % Sodium Chloride Mini Bag 100 ML IVPB SCH ×2 (08:45→14:59)
[2020-07-31] MEDS: Doxycycline 100 MG CAPSULE PO SCH ×2 (08:45→19:48)
[2020-07-31] MEDS: predniSONE 20 MG TABLET PO SCH (08:45)
[2020-07-31] MEDS: Acetaminophen 325 MG TABLET PO PRN (19:53)
[2020-08-01] MEDS: Piperacillin/Tazobactam 3.375 GM in 0.9 % Sodium Chloride Mini Bag 100 ML IVPB SCH ×2 (00:09→09:23)
[2020-08-01] MEDS: 0.9 % Sodium Chloride 1,000 ML IVC SCH ×3 (04:39→21:00)
[2020-08-01 05:00] LABS: Basophils % 0.1 %; Eosinophils % 0.1 %; Hematocrit 30.7 % (37.5-50.1); Hemoglobin 9.6 g/dL (12.9-16.9); Immature Granulocytes % 1.1 % (0-4); Lymphocytes # 0.8 K/mcL (0.6-4.6); Lymphocytes % 4.4 %; Mean Corpuscular HGB Conc 31.3 g/dL (31.6-35.5); Mean Corpuscular Hemoglobin 26.7 pg (28.0-33.3); Mean Corpuscular Volume 85.5 fL (83.0-100.0); Mean Platelet Volume 10.4 fL (9.4-12.4); Monocytes # 1.2 K/mcL (0.0-1.3); Monocytes % 6.4 %; Neutrophils # 16.6 K/mcL (1.6-8.9); Platelet Count 164 K/mcL (140-400); Red Blood Count 3.59 M/mcL (4.19-5.50); Red Cell Distribution Width 15.3 % (11.5-14.5); Segmented Neutrophils % 87.9 %; White Blood Count 18.9 K/mcL (4.3-11.1)
[2020-08-01 05:07] LABS: INR 2.1; Prothrombin Time 23.8 Seconds (9.4-12.1)
[2020-08-01 05:10] LABS: Activated Partial Thrombo Time 87.8 Seconds (26.0-36.0)
[2020-08-01 05:20] LABS: Albumin 2.4 g/dL (3.5-5.7); Albumin/Globulin Ratio 0.6 (1.1-2.2); Bilirubin,Direct 0.6 mg/dL (0.0-0.2); Bilirubin,Indirect 0.5 mg/dL (0.0-1.0); Bilirubin,Total 1.1 mg/dL (0.3-1.0); Total Protein 6.4 g/dL (6.4-8.9)
[2020-08-01 05:21] LABS: BUN/Creatinine Ratio 17 (6-26); Blood Urea Nitrogen 23 mg/dL (6-20); Calcium 8.2 mg/dL (8.6-10.3); Carbon Dioxide 24 mEq/L (23-29); Chloride 107 mEq/L (98-107); Glucose 147 mg/dL (70-105); Osmolality,Calculated 292 (280-300); Potassium 3.3 mEq/L (3.5-5.1); Sodium 138 mEq/L (136-145); eGFR For African Americans > 60 (> 60); eGFR For Non-African Americans 58 (> 60)
[2020-08-01 09:15] LABS: Serine Protease-3 Antibody 4 AU/mL (0-19)
[2020-08-01] MEDS: predniSONE 20 MG TABLET PO SCH (09:23)
[2020-08-01] MEDS: Doxycycline 100 MG CAPSULE PO SCH (09:23)
[2020-08-01] MEDS: *HR* Phytonadione 5 MG TABLET PO SCH (09:23)
[2020-08-01] MEDS: Ondansetron 4 MG/2 ML VIAL IVP PRN (09:28)
[2020-08-01] MEDS ORDERED: Isovue-370 500 ML BOTTLE IVP ONE (13:22)
[2020-08-01] MEDS ORDERED: 0.9 % Sodium Chloride 1,000 ML IVC ONE (13:24)
[2020-08-01] MEDS ORDERED: *HR* Heparin 5,000 UNIT/ML VIAL IVP PRN ×3 (14:05→18:59)
[2020-08-01] MEDS ORDERED: *HR* Heparin 5,000 UNIT/ML VIAL IVP ONE ×2 (14:05→18:59)
[2020-08-01 14:15] LABS: APTT (LE Anticoag) >150 sec (32-48); Diluted Russell Viper Venom >150 sec (33-44); LE Coag APTT Mixing >150 sec (32-48); LE Dil. Russell Viper Mix 1:1 >150 sec (33-44); PT (LE-Anticoag) 18.8 sec (12.0-15.5); Thrombin Time 17.3 sec (14.7-19.5)
[2020-08-01] MEDS ORDERED: Heparin 25,000UNIT/250ML 1/2NS 25,000 UNIT/250 ML IV.SOLN IVC SCH (14:15)
[2020-08-01] MEDS ORDERED: Perflutren Lipid Microsphere 1.3 ML in 0.9 % Sodium Chloride 8.7 ML IVP PRN (14:24)
[2020-08-01] MEDS: levoFLOXacin 500 MG TABLET PO SCH (16:08)
[2020-08-01] MEDS ORDERED: *HR* OxyCODONE Immed Rel 5 MG TABLET PO ONE (16:39)
[2020-08-01 17:55] LABS: Adenovirus Not Detected (Not Detect); Bordetella Pertussis Not Detected (Not Detect); Chlamydophila pneumoniae Not Detected (Not Detect); Coronavirus 229E Not Detected (Not Detect); Coronavirus HKU1 Not Detected (Not Detect); Coronavirus NL63 Not Detected (Not Detect); Coronavirus OC43 Not Detected (Not Detect); Human Metapneumovirus Not Detected (Not Detect); Human Rhinovirus/Enterovirus Not Detected (Not Detect); Influenza A Subtype 2009 H1 Not Detected (Not Detect); Influenza B Not Detected (Not Detect); Mycoplasma pneumoniae Not Detected (Not Detect); Parainfluenza Virus 1 Not Detected (Not Detect); Parainfluenza Virus 2 Not Detected (Not Detect); Parainfluenza Virus 3 Not Detected (Not Detect); Parainfluenza Virus 4 Not Detected (Not Detect); Respiratory Syncytial Virus Not Detected (Not Detect); SARS-CoV-2 Not Detected (Not Detect)
[2020-08-01] MEDS ORDERED: Aspirin 325 MG TABLET PO ONE (18:52)
[2020-08-01] MEDS: Heparin 25,000UNIT/250ML 1/2NS 25,000 UNIT/250 ML IV.SOLN IVC SCH (19:41)
[2020-08-01 19:49] LABS: Hematocrit 33.8 % (37.5-50.1); Hemoglobin 10.5 g/dL (12.9-16.9); Mean Corpuscular HGB Conc 31.1 g/dL (31.6-35.5); Mean Corpuscular Hemoglobin 26.4 pg (28.0-33.3); Mean Corpuscular Volume 85.1 fL (83.0-100.0); Platelet Count 142 K/mcL (140-400); Red Blood Count 3.97 M/mcL (4.19-5.50); Red Cell Distribution Width 15.6 % (11.5-14.5); White Blood Count 16.6 K/mcL (4.3-11.1)
[2020-08-01 19:58] LABS: Heparin anti-factor XA UFH < 0.04 IU/mL (0.30-0.70); INR 2.2; Prothrombin Time 24.6 Seconds (9.4-12.1)
[2020-08-01 20:01] LABS: Activated Partial Thrombo Time 93.9 Seconds (26.0-36.0)
[2020-08-01] MEDS ORDERED: levoFLOXacin 750 MG TABLET PO SCH (21:00)
[2020-08-02] MEDS: Ondansetron 4 MG/2 ML VIAL IVP PRN (00:23)
[2020-08-02 02:15] LABS: Basophils % 0.2 %; Hematocrit 31.2 % (37.5-50.1); Hemoglobin 9.8 g/dL (12.9-16.9); Immature Granulocytes % 2.1 % (0-4); Lymphocytes # 0.7 K/mcL (0.6-4.6); Lymphocytes % 4.1 %; Mean Corpuscular HGB Conc 31.4 g/dL (31.6-35.5); Mean Corpuscular Hemoglobin 26.6 pg (28.0-33.3); Mean Corpuscular Volume 84.8 fL (83.0-100.0); Mean Platelet Volume 10.2 fL (9.4-12.4); Monocytes # 1.1 K/mcL (0.0-1.3); Monocytes % 6.9 %; Neutrophils # 14.3 K/mcL (1.6-8.9); Platelet Count 141 K/mcL (140-400); Red Blood Count 3.68 M/mcL (4.19-5.50); Red Cell Distribution Width 15.5 % (11.5-14.5); Segmented Neutrophils % 86.7 %; White Blood Count 16.4 K/mcL (4.3-11.1)
[2020-08-02 02:26] LABS: Prothrombin Time 22.2 Seconds (9.4-12.1)
[2020-08-02 02:35] LABS: Alanine Aminotransferase 30 Units/L (7-52); Albumin 2.6 g/dL (3.5-5.7); Albumin/Globulin Ratio 0.6 (1.1-2.2); Alkaline Phosphatase 92 Units/L (34-104); Aspartate Amino Transferase 31 Units/L (13-39); BUN/Creatinine Ratio 16 (6-26); Bilirubin,Total 1.4 mg/dL (0.3-1.0); Blood Urea Nitrogen 22 mg/dL (6-20); Calcium 8.4 mg/dL (8.6-10.3); Carbon Dioxide 24 mEq/L (23-29); Chloride 104 mEq/L (98-107); Globulin 4.2 g/dL (2.4-3.5); Glucose 147 mg/dL (70-105); Magnesium 1.8 mg/dL (1.6-2.6); Osmolality,Calculated 292 (280-300); Phosphorous 3.9 mg/dL (2.7-4.5); Potassium 3.5 mEq/L (3.5-5.1); Sodium 138 mEq/L (136-145); Total Protein 6.8 g/dL (6.4-8.9); eGFR For African Americans > 60 (> 60); eGFR For Non-African Americans 56 (> 60)
[2020-08-02 02:43] LABS: Activated Partial Thrombo Time 117.5 Seconds (26.0-36.0)
[2020-08-02] MEDS: 0.9 % Sodium Chloride 1,000 ML IVC SCH ×3 (03:08→18:25)
[2020-08-02 06:17] LABS: QuantiFERON Mitogen minus NIL 1.01 IU/mL
[2020-08-02] MEDS: predniSONE 20 MG TABLET PO SCH (08:06)
[2020-08-02] MEDS: levoFLOXacin 500 MG TABLET PO SCH (08:06)
[2020-08-02] MEDS: *HR* Phytonadione 5 MG TABLET PO SCH (08:06)
[2020-08-02 09:42] LABS: QuantiFERON NIL 0.01 IU/mL; QuantiFERON-TB Gold In-Tube NEGATIVE (Negative)
[2020-08-02] MEDS: *HR* Heparin 5,000 UNIT/ML VIAL IVP PRN ×2 (10:20→22:21)
[2020-08-02] MEDS ORDERED: levoFLOXacin 250 MG TABLET PO ONE (13:02)
[2020-08-02] MEDS: Aspirin 81 MG TAB.CHEW PO SCH (13:41)
[2020-08-02] MEDS: Heparin 25,000UNIT/250ML 1/2NS 25,000 UNIT/250 ML IV.SOLN IVC SCH (14:20)
[2020-08-02] MEDS: methylPREDNISolone 125 MG/2 ML VIAL IVP SCH (18:26)
[2020-08-03] MEDS: 0.9 % Sodium Chloride 1,000 ML IVC SCH ×4 (00:59→23:15)
[2020-08-03 04:58] LABS: Basophils % 0.2 %; Hematocrit 30.8 % (37.5-50.1); Hemoglobin 9.6 g/dL (12.9-16.9); Immature Granulocytes % 2.7 % (0-4); Lymphocytes # 0.6 K/mcL (0.6-4.6); Lymphocytes % 5.1 %; Mean Corpuscular HGB Conc 31.2 g/dL (31.6-35.5); Mean Corpuscular Volume 86.5 fL (83.0-100.0); Mean Platelet Volume 10.4 fL (9.4-12.4); Monocytes # 0.4 K/mcL (0.0-1.3); Monocytes % 3.5 %; Neutrophils # 10.8 K/mcL (1.6-8.9); Nucleated Red Blood Cells 0.2 /100 WBC (0); Platelet Count 141 K/mcL (140-400); Red Blood Count 3.56 M/mcL (4.19-5.50); Red Cell Distribution Width 15.5 % (11.5-14.5); Segmented Neutrophils % 88.5 %; White Blood Count 12.2 K/mcL (4.3-11.1)
[2020-08-03 05:08] LABS: Prothrombin Time 22.5 Seconds (9.4-12.1)
[2020-08-03 05:18] LABS: Alanine Aminotransferase 44 Units/L (7-52); Albumin 2.4 g/dL (3.5-5.7); Albumin/Globulin Ratio 0.6 (1.1-2.2); Alkaline Phosphatase 130 Units/L (34-104); Aspartate Amino Transferase 42 Units/L (13-39); BUN/Creatinine Ratio 22 (6-26); Bilirubin,Total 1.1 mg/dL (0.3-1.0); Blood Urea Nitrogen 31 mg/dL (6-20); Calcium 8.1 mg/dL (8.6-10.3); Carbon Dioxide 24 mEq/L (23-29); Chloride 104 mEq/L (98-107); Globulin 3.7 g/dL (2.4-3.5); Glucose 194 mg/dL (70-105); Osmolality,Calculated 296 (280-300); Potassium 3.8 mEq/L (3.5-5.1); Sodium 137 mEq/L (136-145); Total Protein 6.1 g/dL (6.4-8.9); eGFR For African Americans > 60 (> 60); eGFR For Non-African Americans 56 (> 60)
[2020-08-03 05:50] LABS: Activated Partial Thrombo Time > 360.0 Seconds (26.0-36.0)
[2020-08-03] MEDS: methylPREDNISolone 125 MG/2 ML VIAL IVP SCH ×2 (06:06→18:30)
[2020-08-03] MEDS: Heparin 25,000UNIT/250ML 1/2NS 25,000 UNIT/250 ML IV.SOLN IVC SCH ×2 (06:07→19:32)
[2020-08-03] MEDS: levoFLOXacin 750 MG TABLET PO SCH (08:54)
[2020-08-03] MEDS: Aspirin 81 MG TAB.CHEW PO SCH (08:54)
[2020-08-03 18:02] LABS: Hematocrit 32.7 % (37.5-50.1)
[2020-08-04 01:53] LABS: Basophils % 0.2 %; Hematocrit 32.4 % (37.5-50.1); Immature Granulocytes % 4.5 % (0-4); Lymphocytes # 0.7 K/mcL (0.6-4.6); Lymphocytes % 4.1 %; Mean Corpuscular HGB Conc 30.9 g/dL (31.6-35.5); Mean Corpuscular Hemoglobin 27.1 pg (28.0-33.3); Mean Corpuscular Volume 87.8 fL (83.0-100.0); Monocytes # 0.7 K/mcL (0.0-1.3); Monocytes % 4.2 %; Neutrophils # 15.1 K/mcL (1.6-8.9); Nucleated Red Blood Cells 0.2 /100 WBC (0); Platelet Count 176 K/mcL (140-400); Red Blood Count 3.69 M/mcL (4.19-5.50); Red Cell Distribution Width 15.4 % (11.5-14.5); White Blood Count 17.3 K/mcL (4.3-11.1)
[2020-08-04 01:55] LABS: Prothrombin Time 22.2 Seconds (9.4-12.1)
[2020-08-04 02:11] LABS: Alanine Aminotransferase 45 Units/L (7-52); Albumin 2.3 g/dL (3.5-5.7); Albumin/Globulin Ratio 0.6 (1.1-2.2); Alkaline Phosphatase 113 Units/L (34-104); BUN/Creatinine Ratio 25 (6-26); Bilirubin,Total 0.7 mg/dL (0.3-1.0); Blood Urea Nitrogen 36 mg/dL (6-20); Calcium 7.9 mg/dL (8.6-10.3); Carbon Dioxide 22 mEq/L (23-29); Chloride 105 mEq/L (98-107); Globulin 3.6 g/dL (2.4-3.5); Glucose 243 mg/dL (70-105); Osmolality,Calculated 298 (280-300); Potassium 3.6 mEq/L (3.5-5.1); Sodium 136 mEq/L (136-145); Total Protein 5.9 g/dL (6.4-8.9); eGFR For African Americans > 60 (> 60); eGFR For Non-African Americans 54 (> 60)
[2020-08-04 02:15] LABS: Activated Partial Thrombo Time > 360.0 Seconds (26.0-36.0)
[2020-08-04 02:41] LABS: Aspartate Amino Transferase 29 Units/L (13-39)
[2020-08-04] MEDS: methylPREDNISolone 125 MG/2 ML VIAL IVP SCH ×2 (05:18→16:43)
[2020-08-04] MEDS: 0.9 % Sodium Chloride 1,000 ML IVC SCH ×2 (05:19→08:29)
[2020-08-04] MEDS: Aspirin 81 MG TAB.CHEW PO SCH (08:30)
[2020-08-04] MEDS: levoFLOXacin 750 MG TABLET PO SCH ×2 (08:30→09:28)
[2020-08-04] MEDS ORDERED: *HR* Enoxaparin 100 MG/ML SYRINGE SQ SCH (18:00)
[2020-08-05] MEDS: methylPREDNISolone 125 MG/2 ML VIAL IVP SCH ×2 (05:37→10:34)
[2020-08-05 06:32] LABS: Hematocrit 34.4 % (37.5-50.1); Hemoglobin 10.8 g/dL (12.9-16.9); Mean Corpuscular HGB Conc 31.4 g/dL (31.6-35.5); Mean Corpuscular Hemoglobin 27.1 pg (28.0-33.3); Mean Corpuscular Volume 86.2 fL (83.0-100.0); Mean Platelet Volume 9.9 fL (9.4-12.4); Nucleated Red Blood Cells 0.2 /100 WBC (0); Platelet Count 176 K/mcL (140-400); Red Blood Count 3.99 M/mcL (4.19-5.50); Red Cell Distribution Width 17.2 % (11.5-14.5); White Blood Count 18.1 K/mcL (4.3-11.1)
[2020-08-05 06:43] LABS: INR 1.9; Prothrombin Time 21.5 Seconds (9.4-12.1)
[2020-08-05 06:45] LABS: Activated Partial Thrombo Time 74.5 Seconds (26.0-36.0)
[2020-08-05 06:52] LABS: Albumin 2.4 g/dL (3.5-5.7); Albumin/Globulin Ratio 0.7 (1.1-2.2); Bilirubin,Total 0.9 mg/dL (0.3-1.0); Calcium 8.2 mg/dL (8.6-10.3); Globulin 3.5 g/dL (2.4-3.5); Potassium 3.5 mEq/L (3.5-5.1); Total Protein 5.9 g/dL (6.4-8.9)
[2020-08-05 07:02] LABS: Lymphocytes # 0.4 K/mcL (0.6-4.6); Neutrophils # 17.4 K/mcL (1.6-8.9)
[2020-08-05 07:03] LABS: Anisocytosis 1+ (Not Present); Polychromasia 1+ (Not Present)
[2020-08-05 07:05] LABS: Platelet Estimate Normal (Normal)
[2020-08-05] MEDS: levoFLOXacin 750 MG TABLET PO SCH (08:29)
[2020-08-05] MEDS: Aspirin 81 MG TAB.CHEW PO SCH (08:29)
[2020-08-05] MEDS ORDERED: *HR* Heparin 5,000 UNIT/ML VIAL IVP PRN ×4 (09:39→19:43)
[2020-08-05] MEDS ORDERED: *HR* Heparin 5,000 UNIT/ML VIAL IVP ONE ×2 (09:39→19:43)
[2020-08-05] MEDS ORDERED: Heparin 25,000UNIT/250ML 1/2NS 25,000 UNIT/250 ML IV.SOLN IVC SCH ×2 (09:45→19:45)
[2020-08-05 11:12] LABS: Hematocrit 38.1 % (37.5-50.1); Mean Corpuscular HGB Conc 31.5 g/dL (31.6-35.5); Mean Corpuscular Hemoglobin 27.5 pg (28.0-33.3); Mean Corpuscular Volume 87.4 fL (83.0-100.0); Mean Platelet Volume 9.8 fL (9.4-12.4); Platelet Count 195 K/mcL (140-400); Red Blood Count 4.36 M/mcL (4.19-5.50); Red Cell Distribution Width 17.3 % (11.5-14.5)
[2020-08-05 11:19] LABS: Heparin anti-factor XA UFH < 0.04 IU/mL (0.30-0.70)
[2020-08-05 11:20] LABS: Prothrombin Time 22.5 Seconds (9.4-12.1)
[2020-08-05] MEDS: 0.9 % Sodium Chloride 1,000 ML IVC SCH ×2 (11:52→19:29)
[2020-08-05 15:01] LABS: Ribosomal P Protein Antibody 0 AU/mL (0-40); SSA 52 (Anti-RO) Antibody 0 AU/mL (0-40); SSA 60 (Anti-RO) Antibody 0 AU/mL (0-40)
[2020-08-05] MEDS ORDERED: methylPREDNISolone 125 MG/2 ML VIAL IVP SCH (21:00)
[2020-08-05] MEDS: Apixaban 5 MG TABLET PO SCH (21:03)
[2020-08-05 21:31] LABS: Hematocrit 34.4 % (37.5-50.1); Hemoglobin 10.6 g/dL (12.9-16.9); Mean Corpuscular HGB Conc 30.8 g/dL (31.6-35.5); Mean Corpuscular Hemoglobin 26.8 pg (28.0-33.3); Mean Corpuscular Volume 87.1 fL (83.0-100.0); Mean Platelet Volume 10.3 fL (9.4-12.4); Platelet Count 172 K/mcL (140-400); Red Blood Count 3.95 M/mcL (4.19-5.50); Red Cell Distribution Width 17.1 % (11.5-14.5); White Blood Count 13.7 K/mcL (4.3-11.1)
[2020-08-05 21:50] LABS: Heparin anti-factor XA UFH 0.05 IU/mL (0.30-0.70); INR 2.2; Prothrombin Time 24.8 Seconds (9.4-12.1)
[2020-08-06] MEDS: 0.9 % Sodium Chloride 1,000 ML IVC SCH (03:01)
[2020-08-06 04:21] LABS: INR 2.4; Prothrombin Time 26.6 Seconds (9.4-12.1)
[2020-08-06 04:23] LABS: Activated Partial Thrombo Time 83.3 Seconds (26.0-36.0)
[2020-08-06 04:36] LABS: Alanine Aminotransferase 36 Units/L (7-52); Albumin 2.3 g/dL (3.5-5.7); Albumin/Globulin Ratio 0.7 (1.1-2.2); Alkaline Phosphatase 79 Units/L (34-104); Aspartate Amino Transferase 15 Units/L (13-39); BUN/Creatinine Ratio 22 (6-26); Bilirubin,Total 0.8 mg/dL (0.3-1.0); Blood Urea Nitrogen 34 mg/dL (6-20); Calcium 7.7 mg/dL (8.6-10.3); Carbon Dioxide 26 mEq/L (23-29); Chloride 105 mEq/L (98-107); Globulin 3.2 g/dL (2.4-3.5); Glucose 154 mg/dL (70-105); Osmolality,Calculated 295 (280-300); Potassium 3.8 mEq/L (3.5-5.1); Sodium 137 mEq/L (136-145); Total Protein 5.5 g/dL (6.4-8.9); eGFR For African Americans > 60 (> 60); eGFR For Non-African Americans 51 (> 60)
[2020-08-06] MEDS: Apixaban 5 MG TABLET PO SCH (08:28)
[2020-08-06] MEDS: Aspirin 81 MG TAB.CHEW PO SCH (08:28)
[2020-08-06] MEDS: levoFLOXacin 750 MG TABLET PO SCH (08:28)
[2020-08-06] MEDS ORDERED: predniSONE 20 MG TABLET PO SCH (09:00)
[2020-08-06 10:51] VITALS: BP 142/81
== END 2020-08-06 11:51 | disposition home or self-care (01) | DRG 871 ==
LOC: 2ANU 11:04 → EMEROOARM 11:04 → SUATTDRO 14:47 → 2ANU 16:19 → SUATTDRO 07-24 14:37
PROVIDERS: ADMIT Family Medicine; ATTEND Student in an Organized Health Care Education/Training Program

== ENCOUNTER 2020-10-02 18:14 | Inpatient (IN) ==
[2020-10-02] MEDS ORDERED: Isovue-370 500 ML BOTTLE IVP ONE (18:38)
[2020-10-02 18:55] LABS: Mean Corpuscular Volume 94.3 fL (83.0-100.0)
[2020-10-02 18:57] LABS: Hematocrit 36.7 % (37.5-50.1); Immature Platelets 4.4 % (1.1-6.1); Mean Corpuscular HGB Conc 32.7 g/dL (31.6-35.5); Mean Corpuscular Hemoglobin 30.8 pg (28.0-33.3); Mean Platelet Volume 10.4 fL (9.4-12.4); Red Blood Count 3.89 M/mcL (4.19-5.50); Red Cell Distribution Width 17.9 % (11.5-14.5); White Blood Count 18.9 K/mcL (4.3-11.1)
[2020-10-02 19:04] LABS: INR 1.3; Prothrombin Time 14.9 Seconds (9.4-12.1)
[2020-10-02 19:06] LABS: Activated Partial Thrombo Time 61.1 Seconds (26.0-36.0)
[2020-10-02 19:20] LABS: Troponin I 0.09 ng/mL (< 0.04)
[2020-10-02] MEDS ORDERED: 0.9 % Sodium Chloride 1,000 ML IVC ONE ×2 (19:26→22:43)
[2020-10-02 19:35] LABS: Potassium 4.1 mEq/L (3.5-5.1)
[2020-10-02] MEDS ORDERED: Aspirin 325 MG TABLET PO ONE (21:19)
[2020-10-03] MEDS ORDERED: Naloxone 0.4 MG/ML INJ IVP PRN (01:11)
[2020-10-03 01:50] LABS: Bilirubin,Urine Negative (Negative); Blood,Urine Small (Negative); Clarity,Urine Clear (Clear); Color,Urine Light-Yellow (Yellow); Glucose,Urine (UA) 50 mg/dL (Normal); Ketones,Urine Negative (Negative); Leukocyte Esterase,Urine Negative (Negative); Nitrite,Urine Negative (Negative); Protein,Urine 50 mg/dL (Neg-Trace); Specific Gravity,Urine 1.015 (1.010-1.025); Urobilinogen,Urine Normal (Normal); WBC,Urine 0-3 per hpf (0-3)
[2020-10-03 02:01] LABS: Amphetamine Screen,Urine Negative ng/mL (Cutoff=1000); Barbiturate Screen,Urine Negative ng/mL (Cutoff=200); Benzodiazepines Screen,Urine Negative ng/mL (Cutoff=200); Cannabinoid Screen,Urine Negative ng/mL (Cutoff = 50); Cocaine Screen,Urine Negative ng/mL (Cutoff= 300); Opiate Screen,Urine Negative ng/mL (Cutoff=300); Phencyclidine Screen,Urine Negative ng/mL (Cutoff=25)
[2020-10-03 02:33] LABS: Ethanol < 10 mg/dL (Less than 10)
[2020-10-03 04:33] LABS: Troponin I 0.06 ng/mL (< 0.04)
[2020-10-03] MEDS: Nystatin SUSP 5 ML UD.LIQ BC SCH ×5 (05:01→21:19)
[2020-10-03] MEDS ORDERED: Pantoprazole 40 MG VIAL IVP ONE (08:10)
[2020-10-03 08:51] LABS: Albumin 3.2 g/dL (3.5-5.7); Albumin/Globulin Ratio 1.4 (1.1-2.2); Bilirubin,Total 0.9 mg/dL (0.3-1.0); Calcium 8.2 mg/dL (8.6-10.3); Globulin 2.3 g/dL (2.4-3.5); Total Protein 5.5 g/dL (6.4-8.9)
[2020-10-03 08:53] LABS: Chol/HDL Ratio 3.9 (0-4.9)
[2020-10-03 09:24] LABS: Estimated Average Glucose 126 mg/dl
[2020-10-03] MEDS: Doxycycline 100 MG CAPSULE PO SCH ×2 (09:27→21:18)
[2020-10-03] MEDS: 0.9 % Sodium Chloride 1,000 ML IVC SCH ×2 (09:27→21:17)
[2020-10-03 10:34] LABS: Hematocrit 30.8 % (37.5-50.1); Hemoglobin 10.2 g/dL (12.9-16.9)
[2020-10-03] MEDS ORDERED: Ondansetron 4 MG/2 ML VIAL IVP ONE (13:22)
[2020-10-03] MEDS: Aspirin 81 MG TAB.CHEW PO SCH (15:13)
[2020-10-04] MEDS: 0.9 % Sodium Chloride 1,000 ML IVC SCH ×2 (06:15→17:23)
[2020-10-04] MEDS ORDERED: *HR* Propofol 200 MG/20 ML VIAL IVP ONE (06:51)
[2020-10-04] MEDS ORDERED: *HR* FentaNYL (PF) 100 MCG/2 ML VIAL ONE (06:51)
[2020-10-04] MEDS ORDERED: *HR* Midazolam HCl 2 MG/2 ML VIAL ONE (06:51)
[2020-10-04] MEDS ORDERED: *HR* Rocuronium Bromide 50 MG/5 ML VIAL ONE (06:52)
[2020-10-04] MEDS ORDERED: Lidocaine HCL 4 ML Topical Solution (Laryng-O-Jet Kit Sterile Pak) TP ONE (06:52)
[2020-10-04] MEDS ORDERED: Lidocaine -MPF 2% 2 ML VIAL ONE (06:52)
[2020-10-04] MEDS ORDERED: Ondansetron 4 MG/2 ML VIAL ONE (06:52)
[2020-10-04] MEDS ORDERED: *HR* Succinylcholine 200 MG/10 ML VIAL IVP ONE (06:52)
[2020-10-04 07:25] LABS: Hematocrit 33.4 % (37.5-50.1); Hemoglobin 10.9 g/dL (12.9-16.9); Immature Platelets 3.5 % (1.1-6.1); Mean Corpuscular HGB Conc 32.6 g/dL (31.6-35.5); Mean Corpuscular Hemoglobin 30.8 pg (28.0-33.3); Mean Corpuscular Volume 94.4 fL (83.0-100.0); Red Blood Count 3.54 M/mcL (4.19-5.50); Red Cell Distribution Width 17.9 % (11.5-14.5); White Blood Count 17.3 K/mcL (4.3-11.1)
[2020-10-04 07:33] LABS: Platelet Count 98 K/mcL (140-400)
[2020-10-04 07:47] LABS: Calcium 8.6 mg/dL (8.6-10.3); Magnesium 1.4 mg/dL (1.6-2.6); Phosphorous 3.6 mg/dL (2.7-4.5); Potassium 3.9 mEq/L (3.5-5.1)
[2020-10-04 07:59] LABS: Lymphocytes # 1.9 K/mcL (0.6-4.6); Monocytes # 0.5 K/mcL (0.0-1.3)
[2020-10-04 08:00] LABS: Platelet Estimate Decreased (Normal)
[2020-10-04] MEDS: Aspirin 81 MG TAB.CHEW PO SCH (08:22)
[2020-10-04] MEDS: Doxycycline 100 MG CAPSULE PO SCH ×2 (08:23→21:12)
[2020-10-04] MEDS: Nystatin SUSP 5 ML UD.LIQ BC SCH ×4 (08:23→21:11)
[2020-10-04] MEDS ORDERED: Lidocaine Viscous Oral Soln 15 ML SOLUTION MM PRN (14:49)
[2020-10-04] MEDS ORDERED: 0.9 % Sodium Chloride 500 ML IVC ONE (14:50)
[2020-10-04] MEDS: *HR* Midazolam HCl 5 MG/5 ML VIAL IVP PRN ×3 (15:25→15:32)
[2020-10-04] MEDS: *HR* FentaNYL (PF) 100 MCG/2 ML VIAL IVP PRN ×3 (15:25→15:32)
[2020-10-04] MEDS ORDERED: SUMAtriptan 6 MG/0.5 ML SQ ONE (16:26)
[2020-10-04] MEDS: amLODIPine 5 MG TABLET PO SCH (21:12)
[2020-10-05 02:16] LABS: Basophils % 0.3 %; Eosinophils % 0.2 %; Hematocrit 33.7 % (37.5-50.1); Hemoglobin 11.4 g/dL (12.9-16.9); Lymphocytes % 6.7 %; Mean Corpuscular HGB Conc 33.8 g/dL (31.6-35.5); Mean Corpuscular Hemoglobin 31.3 pg (28.0-33.3); Mean Corpuscular Volume 92.6 fL (83.0-100.0); Mean Platelet Volume 10.2 fL (9.4-12.4); Monocytes # 0.7 K/mcL (0.0-1.3); Neutrophils # 12.2 K/mcL (1.6-8.9); Nucleated Red Blood Cells 0.2 /100 WBC (0); Platelet Count 107 K/mcL (140-400); Red Blood Count 3.64 M/mcL (4.19-5.50); Red Cell Distribution Width 17.8 % (11.5-14.5); Segmented Neutrophils % 82.8 %; White Blood Count 14.7 K/mcL (4.3-11.1)
[2020-10-05 02:33] LABS: Calcium 8.6 mg/dL (8.6-10.3); Phosphorous 4.8 mg/dL (2.7-4.5); Potassium 3.8 mEq/L (3.5-5.1)
[2020-10-05] MEDS: Doxycycline 100 MG CAPSULE PO SCH (08:08)
[2020-10-05] MEDS: amLODIPine 5 MG TABLET PO SCH (08:09)
[2020-10-05] MEDS: Nystatin SUSP 5 ML UD.LIQ BC SCH (08:09)
[2020-10-05] MEDS: Aspirin 81 MG TAB.CHEW PO SCH (08:09)
[2020-10-05] MEDS ORDERED: predniSONE 20 MG TABLET PO SCH (09:00)
[2020-10-05 11:14] VITALS: BP 154/104
== END 2020-10-05 13:00 | disposition home or self-care (01) | DRG 65 ==
LOC: EMEROOARM 18:14 → 3BNU 18:14 → SUATTDRO 10-03 14:23
PROVIDERS: ADMIT Internal Medicine; ATTEND Internal Medicine

== ENCOUNTER 2020-10-09 13:36 | Observation (INO) ==
[2020-10-09] MEDS ORDERED: Ondansetron 4 MG/2 ML VIAL IVP ONE (15:28)
[2020-10-09] MEDS ORDERED: *HR* HYDROmorphone (PF) 1 MG/ML SYRINGE IVP ONE (15:28)
[2020-10-09] MEDS ORDERED: 0.9 % Sodium Chloride 1,000 ML IVC ONE ×2 (15:29→16:30)
[2020-10-09 15:54] LABS: Basophils # 0.1 K/mcL (0.0-0.2); Basophils % 0.2 %; Eosinophils # 0.1 K/mcL (0.0-0.6); Eosinophils % 0.2 %; Hematocrit 35.5 % (37.5-50.1); Hemoglobin 11.9 g/dL (12.9-16.9); Immature Granulocytes % 6.9 % (0-4); Lymphocytes # 1.8 K/mcL (0.6-4.6); Lymphocytes % 7.5 %; Mean Corpuscular HGB Conc 33.5 g/dL (31.6-35.5); Mean Corpuscular Hemoglobin 30.8 pg (28.0-33.3); Mean Platelet Volume 9.2 fL (9.4-12.4); Monocytes # 1.5 K/mcL (0.0-1.3); Monocytes % 6.2 %; Nucleated Red Blood Cells 0.5 /100 WBC (0); Platelet Count 152 K/mcL (140-400); Red Blood Count 3.86 M/mcL (4.19-5.50); Red Cell Distribution Width 17.1 % (11.5-14.5)
[2020-10-09 16:16] LABS: Albumin 3.9 g/dL (3.5-5.7); Albumin/Globulin Ratio 1.2 (1.1-2.2); Bilirubin,Direct 0.2 mg/dL (0.0-0.2); Bilirubin,Indirect 0.6 mg/dL (0.0-1.0); Bilirubin,Total 0.8 mg/dL (0.3-1.0); Calcium 9.4 mg/dL (8.6-10.3); Globulin 3.3 g/dL (2.4-3.5); Potassium 3.5 mEq/L (3.5-5.1); Total Protein 7.2 g/dL (6.4-8.9)
[2020-10-09 16:21] LABS: Reactive Lymphocytes Present (Not Present)
[2020-10-09] MEDS ORDERED: Naloxone 0.4 MG/ML INJ IVP PRN (17:48)
[2020-10-09 18:20] LABS: Bilirubin,Urine Negative (Negative); Blood,Urine Moderate (Negative); Clarity,Urine Clear (Clear); Color,Urine Light-Yellow (Yellow); Glucose,Urine (UA) Normal (Normal); Ketones,Urine Negative (Negative); Leukocyte Esterase,Urine Negative (Negative); Mucus,Urine Few per lpf (None-Few); Nitrite,Urine Negative (Negative); Protein,Urine 50 mg/dL (Neg-Trace); Specific Gravity,Urine 1.013 (1.010-1.025); Squamous Epithelial Cell,Urine Few per hpf (None-Few); Urobilinogen,Urine Normal (Normal); WBC,Urine 0-3 per hpf (0-3)
[2020-10-09] MEDS: 0.9 % Sodium Chloride 1,000 ML IVC SCH (18:59)
[2020-10-09] MEDS ORDERED: Ondansetron 4 MG/2 ML VIAL IVP PRN (22:25)
[2020-10-10] MEDS: 0.9 % Sodium Chloride 1,000 ML IVC SCH (04:29)
[2020-10-10 05:29] LABS: Basophils # 0.1 K/mcL (0.0-0.2); Basophils % 0.3 %; Eosinophils # 0.1 K/mcL (0.0-0.6); Eosinophils % 0.5 %; Hematocrit 32.3 % (37.5-50.1); Hemoglobin 10.6 g/dL (12.9-16.9); Immature Granulocytes % 4.8 % (0-4); Lymphocytes # 1.2 K/mcL (0.6-4.6); Lymphocytes % 6.6 %; Mean Corpuscular HGB Conc 32.8 g/dL (31.6-35.5); Mean Corpuscular Hemoglobin 30.6 pg (28.0-33.3); Mean Corpuscular Volume 93.4 fL (83.0-100.0); Mean Platelet Volume 9.5 fL (9.4-12.4); Monocytes % 5.8 %; Neutrophils # 14.4 K/mcL (1.6-8.9); Nucleated Red Blood Cells 0.2 /100 WBC (0); Platelet Count 118 K/mcL (140-400); Red Blood Count 3.46 M/mcL (4.19-5.50); Red Cell Distribution Width 17.3 % (11.5-14.5); White Blood Count 17.6 K/mcL (4.3-11.1)
[2020-10-10 05:46] LABS: Calcium 8.7 mg/dL (8.6-10.3); Potassium 3.8 mEq/L (3.5-5.1)
[2020-10-10] MEDS ORDERED: Ringers Solution, Lactated 1,000 ML IVC SCH (10:30)
[2020-10-10] MEDS: *HR* HYDROmorphone (PF) 1 MG/ML SYRINGE IVP PRN (18:07)
[2020-10-11] MEDS: *HR* HYDROmorphone (PF) 1 MG/ML SYRINGE IVP PRN ×2 (04:00→12:28)
[2020-10-11] MEDS ORDERED: cefTRIAXone 1,000 MG in Water for inj. (sterile) 10 ML IVP ONE (11:31)
[2020-10-11] MEDS ORDERED: DOXYCYCLINE ORAL SUSPENSION 100 MG/10 ML UDC PO SCH (12:30)
[2020-10-11 15:25] VITALS: BP 159/115
== END 2020-10-11 16:45 | disposition home or self-care (01) ==
LOC: EMEROOARM 13:36 → CDU 13:36 → SUATTDRO 18:45 → CDU 19:46
PROVIDERS: ADMIT Internal Medicine; ATTEND Student in an Organized Health Care Education/Training Program

== ENCOUNTER 2020-10-22 17:24 | Inpatient (IN) ==
[2020-10-22 19:56] LABS: Red Cell Distribution Width 15.9 % (11.5-14.5)
[2020-10-22 19:58] LABS: Hematocrit 31.8 % (37.5-50.1); Hemoglobin 10.8 g/dL (12.9-16.9); Immature Platelets 3.1 % (1.1-6.1); Mean Corpuscular Hemoglobin 29.8 pg (28.0-33.3); Mean Corpuscular Volume 87.8 fL (83.0-100.0); Platelet Count 120 K/mcL (140-400); Red Blood Count 3.62 M/mcL (4.19-5.50)
[2020-10-22 20:04] LABS: INR 1.4; Prothrombin Time 16.3 Seconds (9.4-12.1)
[2020-10-22 20:07] LABS: Activated Partial Thrombo Time 70.6 Seconds (26.0-36.0)
[2020-10-22 20:16] LABS: Potassium 3.5 mEq/L (3.5-5.1)
[2020-10-22 20:21] LABS: Lymphocytes # 2.2 K/mcL (0.6-4.6); Monocytes # 1.8 K/mcL (0.0-1.3); Platelet Estimate Slight Decrease (Normal)
[2020-10-22] MEDS ORDERED: 0.9 % Sodium Chloride 1,000 ML IVC ONE (20:36)
[2020-10-22 20:54] LABS: Albumin 3.4 g/dL (3.5-5.7); Albumin/Globulin Ratio 1.1 (1.1-2.2); Bilirubin,Direct 0.1 mg/dL (0.0-0.2); Bilirubin,Indirect 0.7 mg/dL (0.0-1.0); Bilirubin,Total 0.8 mg/dL (0.3-1.0); Globulin 3.1 g/dL (2.4-3.5); Total Protein 6.5 g/dL (6.4-8.9)
[2020-10-22 21:22] LABS: Bilirubin,Urine Negative (Negative); Blood,Urine Moderate (Negative); Clarity,Urine Clear (Clear); Color,Urine Light-Yellow (Yellow); Glucose,Urine (UA) Normal (Normal); Ketones,Urine Negative (Negative); Leukocyte Esterase,Urine Negative (Negative); Nitrite,Urine Negative (Negative); Protein,Urine 30 mg/dL (Neg-Trace); RBC,Urine 0-3 per hpf (0-3); Urobilinogen,Urine Normal (Normal); WBC,Urine 0-3 per hpf (0-3)
[2020-10-22] MEDS ORDERED: Ondansetron ODT 4 MG TAB.RAPDIS SL ONE (22:11)
[2020-10-22] MEDS ORDERED: GI Cocktail 40 ML EACH PO ONE (22:11)
[2020-10-22] MEDS ORDERED: Naloxone 0.4 MG/ML INJ IVP PRN (23:36)
[2020-10-22] MEDS ORDERED: 0.9 % Sodium Chloride 1,000 ML IVC SCH (23:45)
[2020-10-23 02:26] LABS: Amphetamine Screen,Urine Negative ng/mL (Cutoff=1000); Barbiturate Screen,Urine Negative ng/mL (Cutoff=200); Benzodiazepines Screen,Urine Negative ng/mL (Cutoff=200); Cannabinoid Screen,Urine Negative ng/mL (Cutoff = 50); Cocaine Screen,Urine Negative ng/mL (Cutoff= 300); Opiate Screen,Urine Negative ng/mL (Cutoff=300); Phencyclidine Screen,Urine Negative ng/mL (Cutoff=25)
[2020-10-23 03:29] LABS: Protein/Creatinine Ratio,Urine 0.95 mg/mg (0.00-0.20)
[2020-10-23] MEDS: *HR* HYDROmorphone (PF) 1 MG/ML SYRINGE IVP PRN ×4 (04:04→21:38)
[2020-10-23 05:14] LABS: Hematocrit 29.3 % (37.5-50.1); Hemoglobin 10.3 g/dL (12.9-16.9); Mean Corpuscular HGB Conc 35.2 g/dL (31.6-35.5); Mean Corpuscular Hemoglobin 30.8 pg (28.0-33.3); Mean Corpuscular Volume 87.7 fL (83.0-100.0); Mean Platelet Volume 9.2 fL (9.4-12.4); Platelet Count 100 K/mcL (140-400); Red Blood Count 3.34 M/mcL (4.19-5.50); Red Cell Distribution Width 15.9 % (11.5-14.5); White Blood Count 16.3 K/mcL (4.3-11.1)
[2020-10-23 05:31] LABS: Calcium 8.2 mg/dL (8.6-10.3); Potassium 3.4 mEq/L (3.5-5.1)
[2020-10-23] MEDS: Ondansetron 4 MG/2 ML VIAL IVP PRN (08:22)
[2020-10-23] MEDS ORDERED: 0.9 % Sodium Chloride 1,000 ML IVC SCH (08:45)
[2020-10-23] MEDS ORDERED: Aspirin 325 MG TABLET PO ONE (09:17)
[2020-10-23] MEDS: 0.9 % Sodium Chloride 1,000 ML IVC SCH ×2 (10:30→19:24)
[2020-10-23] MEDS: Cefepime HCl 2,000 MG in Water for inj. (sterile) 20 ML IVP SCH (17:12)
[2020-10-23] MEDS: amLODIPine 5 MG TABLET PO SCH (19:25)
[2020-10-24] MEDS: 0.9 % Sodium Chloride 1,000 ML IVC SCH ×4 (02:08→22:07)
[2020-10-24] MEDS: *HR* HYDROmorphone (PF) 1 MG/ML SYRINGE IVP PRN ×3 (04:51→18:20)
[2020-10-24] MEDS: amLODIPine 5 MG TABLET PO SCH (08:10)
[2020-10-24 08:40] LABS: Basophils # 0.1 K/mcL (0.0-0.2); Basophils % 0.2 %; Eosinophils % 0.1 %; Hematocrit 28.4 % (37.5-50.1); Hemoglobin 9.9 g/dL (12.9-16.9); Immature Granulocytes % 3.1 % (0-4); Lymphocytes # 1.2 K/mcL (0.6-4.6); Lymphocytes % 6.1 %; Mean Corpuscular HGB Conc 34.9 g/dL (31.6-35.5); Mean Corpuscular Hemoglobin 30.9 pg (28.0-33.3); Mean Corpuscular Volume 88.8 fL (83.0-100.0); Mean Platelet Volume 9.5 fL (9.4-12.4); Monocytes # 0.9 K/mcL (0.0-1.3); Monocytes % 4.4 %; Neutrophils # 17.5 K/mcL (1.6-8.9); Platelet Count 115 K/mcL (140-400); Red Cell Distribution Width 16.2 % (11.5-14.5); Segmented Neutrophils % 86.1 %; White Blood Count 20.3 K/mcL (4.3-11.1)
[2020-10-24 09:00] LABS: Calcium 8.3 mg/dL (8.6-10.3); Potassium 3.4 mEq/L (3.5-5.1)
[2020-10-24] MEDS: Ondansetron 4 MG/2 ML VIAL IVP PRN ×2 (10:52→20:14)
[2020-10-24] MEDS: Cefepime HCl 2,000 MG in Water for inj. (sterile) 20 ML IVP SCH (15:12)
[2020-10-25 01:13] LABS: Basophils % 0.3 %; Mean Corpuscular HGB Conc 33.1 g/dL (31.6-35.5)
[2020-10-25] MEDS: *HR* HYDROmorphone (PF) 1 MG/ML SYRINGE IVP PRN ×4 (01:13→17:02)
[2020-10-25 01:15] LABS: Basophils # 0.1 K/mcL (0.0-0.2); Eosinophils % 0.2 %; Hematocrit 25.1 % (37.5-50.1); Hemoglobin 8.3 g/dL (12.9-16.9); Immature Granulocytes % 2.7 % (0-4); Immature Platelets 2.9 % (1.1-6.1); Lymphocytes % 6.4 %; Mean Corpuscular Hemoglobin 30.1 pg (28.0-33.3); Mean Corpuscular Volume 90.9 fL (83.0-100.0); Mean Platelet Volume 9.7 fL (9.4-12.4); Monocytes # 0.9 K/mcL (0.0-1.3); Monocytes % 5.5 %; Platelet Count 107 K/mcL (140-400); Red Blood Count 2.76 M/mcL (4.19-5.50); Red Cell Distribution Width 16.1 % (11.5-14.5); Segmented Neutrophils % 84.9 %; White Blood Count 15.5 K/mcL (4.3-11.1)
[2020-10-25 01:19] LABS: Neutrophils # 13.2 K/mcL (1.6-8.9)
[2020-10-25 01:35] LABS: Calcium 8.1 mg/dL (8.6-10.3); Potassium 3.3 mEq/L (3.5-5.1)
[2020-10-25] MEDS: 0.9 % Sodium Chloride 1,000 ML IVC SCH ×2 (04:51→11:41)
[2020-10-25] MEDS ORDERED: *HR* Metoprolol 5 MG/5 ML VIAL IVP ONE ×2 (06:19→22:24)
[2020-10-25] MEDS: amLODIPine 5 MG TABLET PO SCH (07:29)
[2020-10-25] MEDS: Aspirin 81 MG TAB.CHEW PO SCH (07:29)
[2020-10-25] MEDS ORDERED: Sodium Bicarbonate 75 MEQ in 0.45 % Sodium Chloride 1,000 ML IVC SCH ×2 (11:45→15:30)
[2020-10-25] MEDS: Ondansetron 4 MG/2 ML VIAL IVP PRN ×2 (12:25→22:12)
[2020-10-25 15:08] LABS: Hematocrit 24.5 % (37.5-50.1)
[2020-10-25] MEDS: Cefepime HCl 2,000 MG in Water for inj. (sterile) 20 ML IVP SCH (17:04)
[2020-10-25] MEDS: Doxycycline 100 MG CAPSULE PO SCH (20:12)
[2020-10-26] MEDS: *HR* HYDROmorphone (PF) 1 MG/ML SYRINGE IVP PRN ×3 (01:08→15:14)
[2020-10-26 01:12] LABS: Basophils # 0.1 K/mcL (0.0-0.2); Basophils % 0.3 %; Eosinophils % 0.2 %; Hematocrit 25.3 % (37.5-50.1); Hemoglobin 8.6 g/dL (12.9-16.9); Lymphocytes # 0.9 K/mcL (0.6-4.6); Lymphocytes % 4.9 %; Mean Corpuscular Hemoglobin 30.2 pg (28.0-33.3); Mean Corpuscular Volume 88.8 fL (83.0-100.0); Mean Platelet Volume 10.2 fL (9.4-12.4); Monocytes # 0.9 K/mcL (0.0-1.3); Monocytes % 4.8 %; Neutrophils # 16.6 K/mcL (1.6-8.9); Platelet Count 135 K/mcL (140-400); Red Blood Count 2.85 M/mcL (4.19-5.50); Red Cell Distribution Width 16.3 % (11.5-14.5); Segmented Neutrophils % 87.8 %; White Blood Count 18.9 K/mcL (4.3-11.1)
[2020-10-26 01:34] LABS: Calcium 8.6 mg/dL (8.6-10.3); Potassium 3.7 mEq/L (3.5-5.1)
[2020-10-26 01:36] LABS: % Iron Saturation 11 % (20-55); Iron 25 mcg/dL (65-175); Transferrin 160 mg/dL (203-362)
[2020-10-26 01:52] LABS: Ferritin 1073 ng/mL (20-250)
[2020-10-26 01:59] LABS: Folate 11.9 ng/mL (3.0-16.0)
[2020-10-26] MEDS: amLODIPine 5 MG TABLET PO SCH (08:50)
[2020-10-26] MEDS: Aspirin 81 MG TAB.CHEW PO SCH (08:52)
[2020-10-26] MEDS: Doxycycline 100 MG CAPSULE PO SCH ×2 (08:52→19:59)
[2020-10-26] MEDS ORDERED: Ipratropium/Albuterol Neb 3 ML IH PRN (13:56)
[2020-10-26] MEDS: Cefepime HCl 2,000 MG in Water for inj. (sterile) 20 ML IVP SCH (15:14)
[2020-10-26] MEDS: Ondansetron 4 MG/2 ML VIAL IVP PRN (17:34)
[2020-10-26] MEDS ORDERED: *HR* Metoprolol 5 MG/5 ML VIAL IVP ONE ×2 (19:26→23:27)
[2020-10-26] MEDS ORDERED: Furosemide 40 MG/4 ML VIAL IVP ONE (21:52)
[2020-10-26] MEDS ORDERED: Furosemide 40 MG/4 ML VIAL ONE (21:54)
[2020-10-26 22:10] LABS: ABG Base Excess -4 mEq/L (-2 to 3); ABG HCO3 19 mEq/L (21-27); ABG Oxygen Saturation 90 % (95-98); ABG PCO2 26 mmHg (35-45); ABG PH 7.46 pH Units (7.32-7.45); ABG PO2 53 mmHg (85-104); ABG TCO2 20 mEq/L (20-26)
[2020-10-26] MEDS ORDERED: Levalbuterol Neb 1.25 MG/3 ML ONE (22:13)
[2020-10-26] MEDS: Levalbuterol Neb 1.25 MG/3 ML IH SCH (22:57)
[2020-10-26] MEDS ORDERED: *HR* LORazepam 2 MG/ML VIAL IVP ONE (23:05)
[2020-10-27] MEDS: Levalbuterol Neb 1.25 MG/3 ML IH SCH ×6 (03:59→23:03)
[2020-10-27 05:39] LABS: Basophils % 0.2 %; Eosinophils % 0.1 %; Hematocrit 23.3 % (37.5-50.1); Hemoglobin 8.2 g/dL (12.9-16.9); Immature Granulocytes % 1.4 % (0-4); Lymphocytes # 0.9 K/mcL (0.6-4.6); Lymphocytes % 4.7 %; Mean Corpuscular HGB Conc 35.2 g/dL (31.6-35.5); Mean Corpuscular Hemoglobin 30.8 pg (28.0-33.3); Mean Corpuscular Volume 87.6 fL (83.0-100.0); Monocytes # 0.9 K/mcL (0.0-1.3); Neutrophils # 16.6 K/mcL (1.6-8.9); Platelet Count 139 K/mcL (140-400); Red Blood Count 2.66 M/mcL (4.19-5.50); Red Cell Distribution Width 16.1 % (11.5-14.5); Segmented Neutrophils % 88.6 %; White Blood Count 18.7 K/mcL (4.3-11.1)
[2020-10-27 05:55] LABS: Magnesium 1.3 mg/dL (1.6-2.6); Phosphorous 3.4 mg/dL (2.7-4.5)
[2020-10-27 05:56] LABS: Calcium 8.6 mg/dL (8.6-10.3); Potassium 3.4 mEq/L (3.5-5.1)
[2020-10-27 05:57] LABS: Complement C3 110 mg/dL (87-200)
[2020-10-27] MEDS: Aspirin 81 MG TAB.CHEW PO SCH (07:29)
[2020-10-27] MEDS: Doxycycline 100 MG CAPSULE PO SCH ×2 (07:29→19:56)
[2020-10-27] MEDS: amLODIPine 5 MG TABLET PO SCH (07:29)
[2020-10-27] MEDS: *HR* HYDROmorphone (PF) 1 MG/ML SYRINGE IVP PRN ×2 (07:35→13:38)
[2020-10-27] MEDS ORDERED: 0.9 % Sodium Chloride 250 ML ONE (11:50)
[2020-10-27] MEDS: Cefepime HCl 2,000 MG in Water for inj. (sterile) 20 ML IVP SCH (15:49)
[2020-10-27] MEDS ORDERED: Furosemide 40 MG/4 ML VIAL IVP ONE (17:56)
[2020-10-27] MEDS ORDERED: Ipratropium/Albuterol Neb 3 ML IH PRN (17:59)
[2020-10-27] MEDS ORDERED: Acetaminophen IV 1,000 MG/100 ML BAG IVPB ONE (19:44)
[2020-10-27] MEDS ORDERED: *HR* Metoprolol 5 MG/5 ML VIAL IVP ONE (19:47)
[2020-10-27] MEDS: Furosemide 20 MG/2 ML VIAL IVP SCH (21:11)
[2020-10-27] MEDS ORDERED: Levalbuterol Neb 1.25 MG/3 ML IH SCH (22:05)
[2020-10-28 01:47] LABS: APTT (LE Anticoag) 106 sec (32-48); Diluted Russell VVT Confirm POSITIVE ratio (Negative); Diluted Russell Viper Venom 102 sec (33-44); LE Coag APTT Mixing 68 sec (32-48); LE Dil. Russell Viper Mix 1:1 69 sec (33-44); PT (LE-Anticoag) 14.4 sec (12.0-15.5); Thrombin Time 15.4 sec (14.7-19.5)
[2020-10-28] MEDS: *HR* HYDROmorphone (PF) 1 MG/ML SYRINGE IVP PRN ×4 (02:15→20:20)
[2020-10-28 02:53] LABS: Hemoglobin 8.8 g/dL (12.9-16.9); Lymphocytes % 2.9 %; Mean Corpuscular Hemoglobin 29.8 pg (28.0-33.3); Red Blood Count 2.95 M/mcL (4.19-5.50); Red Cell Distribution Width 16.1 % (11.5-14.5)
[2020-10-28 02:55] LABS: Basophils # 0.1 K/mcL (0.0-0.2); Basophils % 0.2 %; Eosinophils % 0.1 %; Hematocrit 26.6 % (37.5-50.1); Immature Granulocytes % 1.4 % (0-4); Immature Platelets 3.7 % (1.1-6.1); Lymphocytes # 0.7 K/mcL (0.6-4.6); Mean Corpuscular HGB Conc 33.1 g/dL (31.6-35.5); Mean Corpuscular Volume 90.2 fL (83.0-100.0); Mean Platelet Volume 9.8 fL (9.4-12.4); Monocytes # 0.9 K/mcL (0.0-1.3); Monocytes % 3.7 %; Neutrophils # 22.8 K/mcL (1.6-8.9); Platelet Count 172 K/mcL (140-400); Segmented Neutrophils % 91.7 %; White Blood Count 24.9 K/mcL (4.3-11.1)
[2020-10-28 03:13] LABS: Calcium 8.8 mg/dL (8.6-10.3); Magnesium 1.8 mg/dL (1.6-2.6); Phosphorous 3.9 mg/dL (2.7-4.5); Platelet Estimate Normal (Normal); Potassium 3.9 mEq/L (3.5-5.1)
[2020-10-28] MEDS: Levalbuterol Neb 1.25 MG/3 ML IH SCH ×6 (03:32→23:30)
[2020-10-28] MEDS: amLODIPine 5 MG TABLET PO SCH (08:41)
[2020-10-28] MEDS: Aspirin 81 MG TAB.CHEW PO SCH (08:41)
[2020-10-28] MEDS: Doxycycline 100 MG CAPSULE PO SCH ×3 (08:41→19:11)
[2020-10-28] MEDS: Furosemide 20 MG/2 ML VIAL IVP SCH ×2 (08:42→20:16)
[2020-10-28] MEDS: Ondansetron 4 MG/2 ML VIAL IVP PRN (08:49)
[2020-10-28 10:07] LABS: Adenovirus Not Detected (Not Detect); Bordetella Pertussis Not Detected (Not Detect); Chlamydophila pneumoniae Not Detected (Not Detect); Coronavirus 229E Not Detected (Not Detect); Coronavirus HKU1 Not Detected (Not Detect); Coronavirus NL63 Not Detected (Not Detect); Coronavirus OC43 Not Detected (Not Detect); Human Metapneumovirus Not Detected (Not Detect); Human Rhinovirus/Enterovirus Not Detected (Not Detect); Influenza A Subtype 2009 H1 Not Detected (Not Detect); Influenza B Not Detected (Not Detect); Mycoplasma pneumoniae Not Detected (Not Detect); Parainfluenza Virus 1 Not Detected (Not Detect); Parainfluenza Virus 2 Not Detected (Not Detect); Parainfluenza Virus 3 Not Detected (Not Detect); Parainfluenza Virus 4 Not Detected (Not Detect); Respiratory Syncytial Virus Not Detected (Not Detect); SARS-CoV-2 Not Detected (Not Detect)
[2020-10-28] MEDS: predniSONE 20 MG TABLET PO SCH (13:33)
[2020-10-28 14:43] LABS: ABG Base Excess -1 mEq/L (-2 to 3); ABG HCO3 24 mEq/L (21-27); ABG Oxygen Saturation 89 % (95-98); ABG PCO2 34 mmHg (35-45); ABG PH 7.44 pH Units (7.32-7.45); ABG PO2 55 mmHg (85-104); ABG TCO2 25 mEq/L (20-26)
[2020-10-28] MEDS: Cefepime HCl 2,000 MG in Water for inj. (sterile) 20 ML IVP SCH (15:08)
[2020-10-28] MEDS: Albumin 25% 25gram/100mL 25 GM/100 ML IV.SOLN IVPB SCH (20:17)
[2020-10-28] MEDS: Budesonide/Formoterol 160/4.5 1 PUFF INH IH SCH ×2 (20:42→20:47)
[2020-10-29] MEDS: *HR* HYDROmorphone (PF) 1 MG/ML SYRINGE IVP PRN ×5 (00:15→20:05)
[2020-10-29 03:29] LABS: Basophils % 0.1 %; Hematocrit 22.5 % (37.5-50.1); Hemoglobin 7.8 g/dL (12.9-16.9); Immature Granulocytes % 1.1 % (0-4); Lymphocytes # 0.3 K/mcL (0.6-4.6); Lymphocytes % 2.5 %; Mean Corpuscular HGB Conc 34.7 g/dL (31.6-35.5); Mean Corpuscular Hemoglobin 30.4 pg (28.0-33.3); Mean Corpuscular Volume 87.5 fL (83.0-100.0); Mean Platelet Volume 10.2 fL (9.4-12.4); Monocytes # 0.4 K/mcL (0.0-1.3); Platelet Count 180 K/mcL (140-400); Red Blood Count 2.57 M/mcL (4.19-5.50); Red Cell Distribution Width 15.5 % (11.5-14.5); Segmented Neutrophils % 93.3 %
[2020-10-29 03:30] LABS: White Blood Count 11.8 K/mcL (4.3-11.1)
[2020-10-29] MEDS: Levalbuterol Neb 1.25 MG/3 ML IH SCH ×6 (03:40→23:44)
[2020-10-29 03:43] LABS: Albumin 3.6 g/dL (3.5-5.7); Bilirubin,Total 0.9 mg/dL (0.3-1.0); Calcium 9.3 mg/dL (8.6-10.3); Globulin 3.6 g/dL (2.4-3.5); Magnesium 2.1 mg/dL (1.6-2.6); Phosphorous 5.8 mg/dL (2.7-4.5); Potassium 3.8 mEq/L (3.5-5.1); Total Protein 7.2 g/dL (6.4-8.9)
[2020-10-29 03:55] LABS: Thyroid Stimulating Hormone 0.986 mcIU/mL (0.340-5.600)
[2020-10-29] MEDS: Albumin 25% 25gram/100mL 25 GM/100 ML IV.SOLN IVPB SCH ×2 (09:04→20:35)
[2020-10-29] MEDS: Furosemide 20 MG/2 ML VIAL IVP SCH ×2 (09:04→20:05)
[2020-10-29] MEDS: Cyanocobalamin (B-12) 1,000 MCG TABLET PO SCH (09:06)
[2020-10-29] MEDS: predniSONE 20 MG TABLET PO SCH (09:06)
[2020-10-29] MEDS: Aspirin 81 MG TAB.CHEW PO SCH (09:07)
[2020-10-29] MEDS: amLODIPine 5 MG TABLET PO SCH (09:07)
[2020-10-29] MEDS: Doxycycline 100 MG CAPSULE PO SCH ×2 (09:07→20:06)
[2020-10-29] MEDS: Budesonide/Formoterol 160/4.5 1 PUFF INH IH SCH ×2 (11:29→19:37)
[2020-10-29] MEDS: Cefepime HCl 2,000 MG in Water for inj. (sterile) 20 ML IVP SCH (15:39)
[2020-10-29] MEDS ORDERED: Melatonin 3 MG TABLET PO PRN (16:27)
[2020-10-29] MEDS ORDERED: Iron Sucrose Complex 400 MG in 0.9 % Sodium Chloride 250 ML IVPB ONE (16:27)
[2020-10-29] MEDS: Lactobacillus 1 EACH CAP.SPRINK PO SCH (20:05)
[2020-10-30] MEDS: *HR* HYDROmorphone (PF) 1 MG/ML SYRINGE IVP PRN ×4 (00:29→18:02)
[2020-10-30] MEDS: Levalbuterol Neb 1.25 MG/3 ML IH SCH ×6 (03:47→23:37)
[2020-10-30 05:41] LABS: Basophils % 0.1 %; Hematocrit 21.9 % (37.5-50.1); Hemoglobin 7.3 g/dL (12.9-16.9); Immature Granulocytes % 1.4 % (0-4); Lymphocytes # 0.5 K/mcL (0.6-4.6); Lymphocytes % 2.5 %; Mean Corpuscular HGB Conc 33.3 g/dL (31.6-35.5); Mean Corpuscular Hemoglobin 29.4 pg (28.0-33.3); Mean Corpuscular Volume 88.3 fL (83.0-100.0); Mean Platelet Volume 9.9 fL (9.4-12.4); Monocytes # 1.1 K/mcL (0.0-1.3); Neutrophils # 19.7 K/mcL (1.6-8.9); Platelet Count 220 K/mcL (140-400); Red Blood Count 2.48 M/mcL (4.19-5.50); Red Cell Distribution Width 15.6 % (11.5-14.5); White Blood Count 21.6 K/mcL (4.3-11.1)
[2020-10-30 06:04] LABS: Albumin 3.7 g/dL (3.5-5.7); Albumin/Globulin Ratio 1.1 (1.1-2.2); Bilirubin,Total 0.8 mg/dL (0.3-1.0); Calcium 9.7 mg/dL (8.6-10.3); Globulin 3.5 g/dL (2.4-3.5); Magnesium 2.1 mg/dL (1.6-2.6); Phosphorous 5.8 mg/dL (2.7-4.5); Potassium 3.8 mEq/L (3.5-5.1); Total Protein 7.2 g/dL (6.4-8.9)
[2020-10-30 06:05] LABS: Chol/HDL Ratio 4.8 (0-4.9)
[2020-10-30] MEDS: Budesonide/Formoterol 160/4.5 1 PUFF INH IH SCH ×2 (07:56→20:39)
[2020-10-30 08:00] LABS: Estimated Average Glucose 100 mg/dl; Hemoglobin A1C 5.1 %
[2020-10-30] MEDS: predniSONE 20 MG TABLET PO SCH (08:34)
[2020-10-30] MEDS: Albumin 25% 25gram/100mL 25 GM/100 ML IV.SOLN IVPB SCH (08:35)
[2020-10-30] MEDS: Renal Vitamin 1 CAP CAPSULE PO SCH (08:37)
[2020-10-30] MEDS: amLODIPine 5 MG TABLET PO SCH (08:37)
[2020-10-30] MEDS: Cyanocobalamin (B-12) 1,000 MCG TABLET PO SCH (08:38)
[2020-10-30] MEDS: Doxycycline 100 MG CAPSULE PO SCH ×2 (08:40→20:50)
[2020-10-30] MEDS: Lactobacillus 1 EACH CAP.SPRINK PO SCH ×2 (08:40→20:50)
[2020-10-30] MEDS: Aspirin 325 MG TABLET PO SCH (08:40)
[2020-10-30] MEDS: Furosemide 20 MG/2 ML VIAL IVP SCH (08:40)
[2020-10-30] MEDS ORDERED: Multivit/Ca/Min/Fe/FA 1 TAB TABLET PO SCH (09:00)
[2020-10-30 13:38] LABS: Hematocrit 22.3 % (37.5-50.1); Hemoglobin 7.5 g/dL (12.9-16.9)
[2020-10-30] MEDS: Cefepime HCl 2,000 MG in Water for inj. (sterile) 20 ML IVP SCH (15:11)
[2020-10-31] MEDS: *HR* HYDROmorphone (PF) 1 MG/ML SYRINGE IVP PRN ×2 (02:17→08:35)
[2020-10-31] MEDS: Levalbuterol Neb 1.25 MG/3 ML IH SCH ×3 (03:56→11:26)
[2020-10-31 05:56] LABS: Basophils # 0.1 K/mcL (0.0-0.2); Basophils % 0.2 %; Hematocrit 23.9 % (37.5-50.1); Hemoglobin 8.1 g/dL (12.9-16.9); Immature Granulocytes % 3.8 % (0-4); Lymphocytes # 1.1 K/mcL (0.6-4.6); Lymphocytes % 4.1 %; Mean Corpuscular HGB Conc 33.9 g/dL (31.6-35.5); Mean Corpuscular Hemoglobin 29.7 pg (28.0-33.3); Mean Corpuscular Volume 87.5 fL (83.0-100.0); Mean Platelet Volume 9.4 fL (9.4-12.4); Monocytes # 1.7 K/mcL (0.0-1.3); Monocytes % 6.4 %; Nucleated Red Blood Cells 0.1 /100 WBC (0); Platelet Count 325 K/mcL (140-400); Red Blood Count 2.73 M/mcL (4.19-5.50); Segmented Neutrophils % 85.5 %; White Blood Count 27.1 K/mcL (4.3-11.1)
[2020-10-31 05:57] LABS: Neutrophils # 23.2 K/mcL (1.6-8.9)
[2020-10-31 06:17] LABS: Albumin 4.2 g/dL (3.5-5.7); Albumin/Globulin Ratio 1.2 (1.1-2.2); Bilirubin,Total 0.7 mg/dL (0.3-1.0); Calcium 9.8 mg/dL (8.6-10.3); Globulin 3.4 g/dL (2.4-3.5); Magnesium 1.8 mg/dL (1.6-2.6); Potassium 4.1 mEq/L (3.5-5.1); Total Protein 7.6 g/dL (6.4-8.9)
[2020-10-31] MEDS: Budesonide/Formoterol 160/4.5 1 PUFF INH IH SCH (07:36)
[2020-10-31] MEDS: amLODIPine 5 MG TABLET PO SCH (08:36)
[2020-10-31] MEDS: Cyanocobalamin (B-12) 1,000 MCG TABLET PO SCH (08:36)
[2020-10-31] MEDS: Doxycycline 100 MG CAPSULE PO SCH (08:36)
[2020-10-31] MEDS: Renal Vitamin 1 CAP CAPSULE PO SCH (08:37)
[2020-10-31] MEDS: Aspirin 325 MG TABLET PO SCH (08:37)
[2020-10-31] MEDS: Lactobacillus 1 EACH CAP.SPRINK PO SCH (08:37)
[2020-10-31] MEDS: predniSONE 20 MG TABLET PO SCH (08:37)
[2020-10-31 11:19] VITALS: BP 135/86
== END 2020-10-31 14:03 | disposition home or self-care (01) | DRG 64 ==
LOC: EMEROOARM 17:24 → CDU 17:24 → SUATTDRO 22:40 → CDU 23:54 → 3ANU 10-23 15:20 → SUATTDRO 10-25 18:25
PROVIDERS: ADMIT Student in an Organized Health Care Education/Training Program; ATTEND Internal Medicine